=== PATIENT | male | born 1970 | race Caucasian/White ===

== ENCOUNTER 2018-04-21 23:42 | Emergency (ER) | payer BC, MEDICAID ==
[2018-04-21] MEDS ORDERED: traMADol 50 MG Tab PO ONE (23:43)
[2018-04-22] MEDS ORDERED: Amoxicillin/Clavulanate K 875-125 MG Tab PO STA (00:08)
--- NOTE | 2018-04-22 00:13 | EDM.PDOC ---
ED HPI GENERAL MEDICAL PROBLEM - General Chief Complaint: General Stated Complaint: SWOLLEN TOOTH Time Seen by Provider: 04/21/18 23:50 Source of Information: Reports: Patient History Limitations: Reports: No Limitations - History of Present Illness INITIAL COMMENTS - FREE TEXT/NARRATIVE: 47 y.o.male with a h/o Asthma came with his to the ed due to left facial swelling and toothache. Pt took motrin for pain. No N/V/D or any other acute medical issues. 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: NSAIDS L upper jaw Pain Score (Numeric/FACES): 5 - Related Data Allergies Allergy/AdvReac Type Severity Reaction Status Date / Time No Known Allergies Allergy Verified 04/21/18 23:50 Home Meds: Home Meds Albuterol Sulfate [Proair Hfa] 2 puff IH ASDIRECTED 06/25/15 [History] Fluticasone/Salmeterol [Fluticasone-Salmeterol 113-14 MCG Powder Inh] 1 puff BID 04/21/18 [History] Amoxicillin/Potassium Clav [Augmentin 875-125 Tablet] 1 each PO BID #20 tablet 04/22/18 [Rx] Past Medical History - Past Health History Medical/Surgical History: Denies Medical/Surgical History Cardiovascular History: Reports: Hypertension Respiratory History: Reports: Asthma Genitourinary History: Reports: None Endocrine/Metabolic History: Reports: Obesity/BMI 30+ Dermatologic History: Reports: Cellulitis - Infectious Disease History Infectious Disease History: Reports: Chicken Pox - Past Surgical History GI Surgical History: Reports: Hernia, Abdominal Social & Family History - Tobacco Use Smoking Status *Q: Never Smoker - Caffeine Use Caffeine Use: Reports: Soda, Tea - Recreational Drug Use Recreational Drug Use: No ED ROS GENERAL - Review of Systems Review Of Systems: See Below Constitutional: Reports: No Symptoms HEENT: Reports: Dental Pain Respiratory: Reports: No Symptoms Cardiovascular: Reports: No Symptoms Endocrine: Reports: No Symptoms GI/Abdominal: Reports: No Symptoms : Reports: No Symptoms Musculoskeletal: Reports: No Symptoms Skin: Reports: No Symptoms Neurological: Reports: No Symptoms Psychiatric: Reports: No Symptoms Hematologic/Lymphatic: Reports: No Symptoms Immunologic: Reports: No Symptoms ED EXAM, GENERAL - Physical Exam Exam: See Below Exam Limited By: No Limitations General Appearance: Alert, WD/WN, Mild Distress Eye Exam: Bilateral Eye: Normal Inspection Ears: Normal External Exam Ear Exam: Bilateral Ear: Auricle Normal Nose: Normal Inspection, Normal Mucosa, No Blood Throat/Mouth: Normal Lips, Normal Gums, Normal Voice, No Airway Compromise, Other (poor dentition, left face swollen) Head: Atraumatic, Normocephalic Neck: Normal Inspection, Supple, Non-Tender, Full Range of Motion Respiratory/Chest: No Respiratory Distress, Lungs Clear, Normal Breath Sounds, Chest Non-Tender Cardiovascular: Normal Peripheral Pulses, Regular Rate, Rhythm, No Edema, No Gallop, No Murmur Peripheral Pulses: 2+: Brachial (L) GI/Abdominal: Normal Bowel Sounds, Soft, Non-Tender, No Organomegaly, Pelvis Stable (Male) Exam: Deferred Rectal (Males) Exam: Deferred Back Exam: Normal Inspection, Full Range of Motion Extremities: Normal Inspection, Normal Range of Motion, Non-Tender, No Pedal Edema, Normal Capillary Refill Neurological: Alert, Oriented, CN II-XII Intact, Normal Cognition, Normal Gait Psychiatric: Normal Affect, Normal Mood Skin Exam: Warm, Dry, Intact, Normal Color, Rash (left face swollen, erythematous) Lymphatic: No Adenopathy Course - Vital Signs Text/Narrative:: 47 y.o.male with a h/o Asthma came with his to the ed due to left facial swelling and toothache. Pt took motrin for pain. No N/V/D or any other acute medical issues. BP 176/96 RR 18 Pulse ox 97% on RA Pulse 66 Temp 36.8 PE: WNWD W M with left face swelling, pain and redness Imaging: Refused facial CT to R/O abscess Impression: Tooth abscess #14 Tx: Ultram totake home. Augmentin Reexam: Improved Plan: D/C with instructions Last Recorded V/S: Last Vital Signs Temp 36.8 C 04/21/18 23:45 Pulse 71 04/22/18 00:16 Resp 20 04/22/18 00:16 BP 168/83 H 04/22/18 00:16 Pulse Ox 96 04/22/18 00:16 - Orders/Labs/Meds Meds: Medications Discontinued Medications Generic Name Dose Route Start Last Admin Trade Name Dustin PRN Reason Stop Dose Admin Amoxicillin/Clavulanate Potassium 1 tab 04/22/18 00:08 04/22/18 00:13 Augmentin 875 Mg/125 Mg PO 04/22/18 00:09 1 tab ONETIME STA Administration Departure - Departure Time of Disposition: 00:09 Disposition: Home, Self-Care 01 Condition: Good Clinical Impression: Tooth abscess - Discharge Information Prescriptions: Amoxicillin/Potassium Clav [Augmentin 875-125 Tablet] 1 each PO BID #20 tablet Instructions: Amoxicillin; Clavulanic Acid tablets, Dental Abscess, Easy-to- Read, Tramadol tablets Referrals: Radha Luis NP [Primary Care Provider] - Forms: ED Department Discharge Additional Instructions: Please take Augmentin as recommended, Ultram for severe pain. Please see a dentist a.s.a.p. Please come back if your symptoms get worse acutely
[2018-04-22 00:29] VITALS: BP 168/83
== END 2018-04-22 00:20 | disposition home or self-care (01) ==
LOC: FB.ED 23:42
DX: K04.7 Periapical abscess without sinus (principal); E66.9 Obesity, unspecified; I10 Essential (primary) hypertension; J45.909 Unspecified asthma, uncomplicated
CPT/HCPCS: 99282; A9270

== ENCOUNTER 2019-12-06 18:38 | Emergency (ER) | payer BC ==
[2019-12-06] MEDS ORDERED: Aspirin 81 MG Tab.Chew PO ONE (19:28)
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
[2019-12-06 20:01] VITALS: BP 171/77; PULSE 72
--- NOTE | 2019-12-07 09:50 | CR ---
INDICATION: Dyspnea, chest pain. CHEST ONE VIEW: An AP upright portable view of the chest was obtained 12/06/19 - no comparisons. The heart appears to be near the upper limits of normal in size, but is not grossly enlarged. A definite active infiltrate or effusion was not identified, although the pulmonary vasculature appears to be slightly congested. It is not well seen partly due to the portable technique and partly due to the patient's large size. When clinically possible, PA and lateral views of the chest may be helpful for further evaluation. A definite active infiltrate or effusion was not identified. Exogenous obesity is noted. IMPRESSION: No definite acute process, but difficult to exclude a mild degree of pulmonary vascular congestion. Full inspiration PA and lateral views of the chest may be helpful for further evaluation. MTDD
== END 2019-12-06 20:35 | disposition home or self-care (01) ==
LOC: FB.ED 18:38
DX: J45.909 Unspecified asthma, uncomplicated (principal); R07.89 Other chest pain; I10 Essential (primary) hypertension; E66.9 Obesity, unspecified; Z68.44 Body mass index [BMI] 60.0-69.9, adult; Z79.899 Other long term (current) drug therapy
CPT/HCPCS: 36415; 71045; 80053; 83880; 84484; 85025; 85379; 93005; 99285; A9270; 93010; 99284

== ENCOUNTER 2020-02-11 17:56 | Emergency (ER) | payer BC ==
--- NOTE | 2020-02-11 18:20 | EDM.PDOC ---
ED HPI GENERAL MEDICAL PROBLEM - General Chief Complaint: General Stated Complaint: SOB,DIZZINES,LIGHTHEADED Time Seen by Provider: 02/11/20 18:05 Source of Information: Reports: Patient History Limitations: Reports: No Limitations - History of Present Illness INITIAL COMMENTS - FREE TEXT/NARRATIVE: Patient presented to the ED because he want to be tested for Covid. He said he was exposed to 3 people who tested positive for covid at work. He c/o coughing,but no fever,sorethroat, nausea,vomiting or diarrhea. - Related Data Allergies Allergy/AdvReac Type Severity Reaction Status Date / Time No Known Allergies Allergy Verified 12/06/19 19:12 Home Meds: Home Meds Albuterol [Ventolin HFA] 2 puff INH BID 12/06/19 [History] Budesonide/Formoterol Fumarate [Budesonide-Formoterol 160-4.5] 1 puff INH BEDTIME 02/11/20 [History] Past Medical History - Past Health History Medical/Surgical History: Denies Medical/Surgical History HEENT History: Reports: Impaired Vision Cardiovascular History: Reports: Hypertension Respiratory History: Reports: Asthma Genitourinary History: Reports: None Endocrine/Metabolic History: Reports: Obesity/BMI 30+ Dermatologic History: Reports: Cellulitis - Infectious Disease History Infectious Disease History: Reports: Chicken Pox - Past Surgical History GI Surgical History: Reports: Hernia, Abdominal Social & Family History - Family History Family Medical History: Noncontributory - Caffeine Use Caffeine Use: Reports: Soda, Tea ED ROS GENERAL - Review of Systems Review Of Systems: See Below Constitutional: Reports: No Symptoms HEENT: Reports: No Symptoms Respiratory: Reports: Shortness of Breath, Cough Cardiovascular: Reports: No Symptoms Endocrine: Reports: No Symptoms GI/Abdominal: Reports: No Symptoms : Reports: No Symptoms Musculoskeletal: Reports: No Symptoms Skin: Reports: No Symptoms Neurological: Reports: No Symptoms Psychiatric: Reports: No Symptoms ED EXAM, GENERAL - Physical Exam Exam: See Below Exam Limited By: No Limitations General Appearance: Alert, No Apparent Distress Eye Exam: Bilateral Eye: PERRL Ears: Normal External Exam, Normal Canal Nose: Normal Inspection, Normal Mucosa Throat/Mouth: Normal Inspection, Normal Lips Head: Atraumatic, Normocephalic Neck: Normal Inspection, Supple, Non-Tender, Full Range of Motion Respiratory/Chest: No Respiratory Distress, Lungs Clear, Normal Breath Sounds Cardiovascular: Normal Peripheral Pulses, Regular Rate, Rhythm, No Edema GI/Abdominal: Normal Bowel Sounds, Soft, Non-Tender Back Exam: Normal Inspection, Full Range of Motion Extremities: Normal Inspection, Normal Range of Motion Neurological: Alert, Oriented, CN II-XII Intact Course - Vital Signs Text/Narrative:: [id number] - Orders/Labs/Meds Orders: Active Orders 24 hr Category Date Time Status CORONAVIRUS COVID-19, LIVE Routine Lab 02/11/20 18:18 Ordered Departure - Departure Time of Disposition: 18:20 Disposition: Home, Self-Care 01 Condition: Good Clinical Impression: Exposure to COVID-19 virus - Discharge Information Instructions: COVID-19 Frequently Asked Questions Referrals: Radha Luis NP [Primary Care Provider] - Forms: ED Department Discharge Additional Instructions: Isolate yourself until you get your covid result - My Orders Last 24 Hours: My Active Orders 02/11/20 18:18 CORONAVIRUS COVID-19, LIVE Routine - Assessment/Plan Last 24 Hours: My Active Orders 02/11/20 18:18 CORONAVIRUS COVID-19, LIVE Routine
[2020-02-11 20:12] VITALS: BP 181/84; PULSE 60
[2020-02-13 19:07] LABS: CORNONAVIRUS (COVID19) CSH-NRL Negative (Negative)
== END 2020-02-11 18:30 | disposition home or self-care (01) ==
LOC: FB.ED 17:56
DX: R05 Cough (principal); I10 Essential (primary) hypertension; J45.909 Unspecified asthma, uncomplicated; E66.9 Obesity, unspecified; Z20.828 Contact with and (suspected) exposure to other viral communicable diseases; Z79.899 Other long term (current) drug therapy
CPT/HCPCS: 99284; U0003

== ENCOUNTER 2020-06-29 16:47 | Observation (INO) | payer BC ==
[2020-06-29] MEDS ORDERED: Sodium Chloride 0.9% 10 ML Syringe FLUSH PRN (16:52)
[2020-06-29] MEDS ORDERED: Aspirin 81 MG Tab.Chew PO STA (16:53)
[2020-06-29] MEDS ORDERED: Nitroglycerin 0.4 MG Tab.SL SL PRN (16:53)
[2020-06-29] MEDS ORDERED: Diltiazem 25 MG/5 ML SDV IVPUSH ONE (17:01)
[2020-06-29] MEDS ORDERED: Diltiazem 25 MG/5 ML SDV IVPUSH STA (17:08)
[2020-06-29] MEDS ORDERED: Enoxaparin 40 MG/0.4 ML Syringe SUBCUT SCH (18:00)
[2020-06-29] MEDS ORDERED: Metoprolol Succinate 50 MG Tab.ER PO STA (18:15)
--- NOTE | 2020-06-29 18:22 | EDM.PDOC ---
ED HPI GENERAL MEDICAL PROBLEM - General Chief Complaint: Cardiovascular Problem Stated Complaint: SOB Time Seen by Provider: 06/29/20 16:50 Source of Information: Reports: Patient History Limitations: Reports: No Limitations - History of Present Illness INITIAL COMMENTS - FREE TEXT/NARRATIVE: Patient is a 50 YO M who presented to the ED because of chest pain and dyspnea which started 3 days ago and got worse today. He described it as heaviness over the sternal area. There is no nausea,vomiting, fever, chills, cough or cold symptoms. THere is no known exposure to Covid but have not been vaccinated yet. Midsternal chest Pain Score (Numeric/FACES): 7 - Related Data Allergies Allergy/AdvReac Type Severity Reaction Status Date / Time No Known Allergies Allergy Verified 06/29/20 17:16 Home Meds: Home Meds Albuterol [Ventolin HFA] 2 puff INH BID 12/06/19 [History] Budesonide/Formoterol Fumarate [Budesonide-Formoterol 160-4.5] 1 puff INH BID 02/11/20 [History] Montelukast [Singulair] 10 mg PO BEDTIME 06/29/20 [History] predniSONE [Prednisone] 40 mg ASDIRECTED 06/29/20 [History] Past Medical History - Past Health History Medical/Surgical History: Denies Medical/Surgical History HEENT History: Reports: Impaired Vision Cardiovascular History: Reports: Hypertension Respiratory History: Reports: Asthma Genitourinary History: Reports: None Endocrine/Metabolic History: Reports: Obesity/BMI 30+ Dermatologic History: Reports: Cellulitis - Infectious Disease History Infectious Disease History: Reports: Chicken Pox - Past Surgical History HEENT Surgical History: Reports: None GI Surgical History: Reports: Hernia, Abdominal Social & Family History - Family History Family Medical History: No Pertinent Family History - Tobacco Use Tobacco Use Status *Q: Never Tobacco User - Caffeine Use Caffeine Use: Reports: Soda - Recreational Drug Use Recreational Drug Use: No ED ROS GENERAL - Review of Systems Review Of Systems: See Below Constitutional: Reports: No Symptoms HEENT: Reports: No Symptoms Respiratory: Reports: Shortness of Breath Cardiovascular: Reports: Chest Pain, Palpitations Endocrine: Reports: No Symptoms GI/Abdominal: Reports: No Symptoms : Reports: No Symptoms Musculoskeletal: Reports: No Symptoms Skin: Reports: No Symptoms Neurological: Reports: No Symptoms Psychiatric: Reports: No Symptoms Hematologic/Lymphatic: Reports: No Symptoms ED EXAM, GENERAL - Physical Exam Exam: See Below Exam Limited By: No Limitations General Appearance: Alert, No Apparent Distress Eye Exam: Bilateral Eye: PERRL Ears: Normal External Exam, Normal Canal Nose: Normal Inspection, Normal Mucosa, No Blood Throat/Mouth: Normal Inspection, Normal Lips, Normal Teeth, Normal Gums Head: Atraumatic, Normocephalic Neck: Normal Inspection, Supple, Non-Tender, Full Range of Motion Respiratory/Chest: No Respiratory Distress, Lungs Clear, Normal Breath Sounds, No Accessory Muscle Use, Chest Non-Tender Cardiovascular: Normal Peripheral Pulses, Regular Rate, Rhythm, No Edema, No Gallop, Tachycardia, Irregularly Irregular GI/Abdominal: Normal Bowel Sounds, Soft, Non-Tender, No Organomegaly Back Exam: Normal Inspection, Full Range of Motion Extremities: Normal Inspection, Normal Range of Motion, Non-Tender Neurological: Alert, Oriented, CN II-XII Intact, Normal Cognition, Normal Gait Psychiatric: Normal Affect, Normal Mood Skin Exam: Warm, Dry, Normal Color Course - Vital Signs Text/Narrative:: Labs/EKG/CXR result was reviewed and discussed with patient Cardizem 25 mg IV x1 Metoprolol Succinate 50 mg po x1 Last Recorded V/S: Last Vital Signs Temp 36.3 C 06/30/20 07:25 Pulse 93 06/30/20 07:25 Resp 18 06/30/20 07:25 BP 151/92 H 06/30/20 07:25 Pulse Ox 98 06/30/20 07:25 - Orders/Labs/Meds Orders: Active Orders 24 hr Category Date Time Status Patient Status [ADT] Routine ADT 06/29/20 18:27 Active Cardiac Monitoring [RC] CONTINUOUS Care 06/29/20 18:30 Active EKG Documentation Completion [RC] ASDIRECTED Care 06/29/20 16:52 Active Intake and Output [RC] QSHIFT Care 06/29/20 18:29 Active Oxygen Therapy [RC] PRN Care 06/29/20 18:27 Active Pulse Oximetry [RC] PRN Care 06/29/20 18:29 Active Up With Assistance [RC] ASDIRECTED Care 06/29/20 18:27 Active VTE/DVT Education [RC] Per Unit Routine Care 06/29/20 18:27 Active Vital Signs [RC] Q4H Care 06/29/20 18:27 Active Heart Healthy Diet [DIET] Diet 06/29/20 Dinner Ordered Chest 1V Frontal [CR] Stat Exams 06/29/20 16:51 Taken TROPONIN I [CHEM] AM Lab 07/01/20 05:11 Ordered Docusate Sodium/Sennosides [Senna Plus] Med 06/29/20 18:27 Active 1 tab PO BID PRN Enoxaparin [Lovenox] Med 06/29/20 18:00 Active 40 mg SUBCUT Q24H Nitroglycerin [Nitrostat] Med 06/29/20 16:53 Active 0.4 mg SL Q5M PRN Ondansetron [Zofran] Med 06/29/20 18:27 Active 4 mg IV Q4H PRN Sodium Chloride 0.9% [Saline Flush] Med 06/29/20 16:52 Active 10 ml FLUSH ASDIRECTED PRN Saline Lock Insert [OM.PC] Routine Oth 06/29/20 16:52 Ordered Sequential Compression Device [OM.PC] Per Unit Routine Oth 06/29/20 18:30 Ordered Resuscitation Status Routine Resus Stat 06/29/20 18:27 Ordered EKG 12 Lead [EK] Routine Ther 06/29/20 16:51 Ordered Medication Orders Enoxaparin Sodium (Enoxaparin 40 Mg/0.4 Ml Syringe) 40 mg SUBCUT Q24H HERNAN Last Admin: 06/29/20 20:10 Dose: 40 mg Documented by: CÉSAR Nitroglycerin (Nitroglycerin 0.4 Mg Tab.Sl) 0.4 mg SL Q5M PRN PRN Reason: Chest Pain Ondansetron HCl (Ondansetron 4 Mg/2 Ml Sdv) 4 mg IV Q4H PRN PRN Reason: Nausea/Vomiting Senna/Docusate Sodium (Docusate Sodium/Sennosides 50-8.6 Mg Tab) 1 tab PO BID PRN PRN Reason: Constipation Sodium Chloride (Sodium Chloride 0.9% 10 Ml Syringe) 10 ml FLUSH ASDIRECTED PRN PRN Reason: Keep Vein Open Last Admin: 06/29/20 17:15 Dose: 10 ml Documented by: CONNOR Labs: Laboratory Tests 06/29/20 06/29/20 06/29/20 Range/Units 17:05 17:05 17:05 WBC 9.0 (3.2-10.1) x10-3/uL RBC 5.11 (3.90-5.90) x10(6)uL Hgb 15.1 (12.9-17.7) g/dL Hct 46.0 (38.3-50.1) % MCV 89.9 (80.8-98.7) fL MCH 29.6 (27.0-33.3) pg MCHC 33.0 (28.7-35.3) g/dL RDW 14.6 (12.4-15.0) % Plt Count 187 (117-477) x10(3)uL MPV 9.3 (6.7-11.0) fL Neut % (Auto) 86.6 H (40.3-71.8) % Lymph % (Auto) 9.4 L (15.8-45.3) % Louisa % (Auto) 3.7 L (5.5-15.2) % Eos % (Auto) 0.1 (0.1-6.8) % Baso % (Auto) 0.2 L (0.3-3.8) % Neut # (Auto) 7.8 H (1.7-6.9) x10-3/uL Lymph # (Auto) 0.8 (0.5-4.5) x10-3/uL Louisa # (Auto) 0.3 (0.0-1.2) x10-3/uL Eos # (Auto) 0.0 (0.0-0.6) x10-3/uL Baso # (Auto) 0.0 (0.0-0.3) x10-3/uL PT (9.0-11.1) sec INR (1.00-1.24) APTT (24.4-33.2) SECONDS D-Dimer, Quantitative (0.0-0.59) mg/LFEU Sodium 143 (135-145) mmol/L Potassium 4.4 (3.5-5.3) mmol/L Chloride 103 (100-110) mmol/L Carbon Dioxide 32 (21-32) mmol/L BUN 22 H (7-18) mg/dL Creatinine 1.1 (0.70-1.30) mg/dL Est Cr Clr Drug Dosing 80.34 mL/min Estimated GFR (MDRD) > 60 (>60) BUN/Creatinine Ratio 20.0 (9-20) Glucose 152 H (80-116) mg/dL Calcium 8.7 (8.6-10.2) mg/dL Magnesium (1.8-2.5) mg/dL Total Bilirubin 0.3 (0.1-1.3) mg/dL AST 29 H (5-25) IU/L ALT 48 H D (12-36) U/L Alkaline Phosphatase 94 (56-112) IU/L Troponin I 9.0 (4.0-60.3) pg/mL NT-Pro-B Natriuret Pep (<=125) pg/mL Total Protein 7.9 (6.0-8.0) g/dL Albumin 3.9 (3.5-5.2) g/dL Globulin 4.0 g/dL Albumin/Globulin Ratio 1.0 SARS-CoV-2 RNA (LIVE) (NEGATIVE) 06/29/20 06/29/20 06/29/20 Range/Units 17:05 17:05 17:05 WBC (3.2-10.1) x10-3/uL RBC (3.90-5.90) x10(6)uL Hgb (12.9-17.7) g/dL Hct (38.3-50.1) % MCV (80.8-98.7) fL MCH (27.0-33.3) pg MCHC (28.7-35.3) g/dL RDW (12.4-15.0) % Plt Count (117-477) x10(3)uL MPV (6.7-11.0) fL Neut % (Auto) (40.3-71.8) % Lymph % (Auto) (15.8-45.3) % Louisa % (Auto) (5.5-15.2) % Eos % (Auto) (0.1-6.8) % Baso % (Auto) (0.3-3.8) % Neut # (Auto) (1.7-6.9) x10-3/uL Lymph # (Auto) (0.5-4.5) x10-3/uL Louisa # (Auto) (0.0-1.2) x10-3/uL Eos # (Auto) (0.0-0.6) x10-3/uL Baso # (Auto) (0.0-0.3) x10-3/uL PT 10.1 (9.0-11.1) sec INR 0.94 L (1.00-1.24) APTT 24.6 (24.4-33.2) SECONDS D-Dimer, Quantitative 0.38 (0.0-0.59) mg/LFEU Sodium (135-145) mmol/L Potassium (3.5-5.3) mmol/L Chloride (100-110) mmol/L Carbon Dioxide (21-32) mmol/L BUN (7-18) mg/dL Creatinine (0.70-1.30) mg/dL Est Cr Clr Drug Dosing mL/min Estimated GFR (MDRD) (>60) BUN/Creatinine Ratio (9-20) Glucose (80-116) mg/dL Calcium (8.6-10.2) mg/dL Magnesium (1.8-2.5) mg/dL Total Bilirubin (0.1-1.3) mg/dL AST (5-25) IU/L ALT (12-36) U/L Alkaline Phosphatase (56-112) IU/L Troponin I (4.0-60.3) pg/mL NT-Pro-B Natriuret Pep 971 H (<=125) pg/mL Total Protein (6.0-8.0) g/dL Albumin (3.5-5.2) g/dL Globulin g/dL Albumin/Globulin Ratio SARS-CoV-2 RNA (LIVE) (NEGATIVE) 06/29/20 06/29/20 Range/Units 17:05 18:23 WBC (3.2-10.1) x10-3/uL RBC (3.90-5.90) x10(6)uL Hgb (12.9-17.7) g/dL Hct (38.3-50.1) % MCV (80.8-98.7) fL MCH (27.0-33.3) pg MCHC (28.7-35.3) g/dL RDW (12.4-15.0) % Plt Count (117-477) x10(3)uL MPV (6.7-11.0) fL Neut % (Auto) (40.3-71.8) % Lymph % (Auto) (15.8-45.3) % Louisa % (Auto) (5.5-15.2) % Eos % (Auto) (0.1-6.8) % Baso % (Auto) (0.3-3.8) % Neut # (Auto) (1.7-6.9) x10-3/uL Lymph # (Auto) (0.5-4.5) x10-3/uL Louisa # (Auto) (0.0-1.2) x10-3/uL Eos # (Auto) (0.0-0.6) x10-3/uL Baso # (Auto) (0.0-0.3) x10-3/uL PT (9.0-11.1) sec INR (1.00-1.24) APTT (24.4-33.2) SECONDS D-Dimer, Quantitative (0.0-0.59) mg/LFEU Sodium (135-145) mmol/L Potassium (3.5-5.3) mmol/L Chloride (100-110) mmol/L Carbon Dioxide (21-32) mmol/L BUN (7-18) mg/dL Creatinine (0.70-1.30) mg/dL Est Cr Clr Drug Dosing mL/min Estimated GFR (MDRD) (>60) BUN/Creatinine Ratio (9-20) Glucose (80-116) mg/dL Calcium (8.6-10.2) mg/dL Magnesium 2.0 (1.8-2.5) mg/dL Total Bilirubin (0.1-1.3) mg/dL AST (5-25) IU/L ALT (12-36) U/L Alkaline Phosphatase (56-112) IU/L Troponin I (4.0-60.3) pg/mL NT-Pro-B Natriuret Pep (<=125) pg/mL Total Protein (6.0-8.0) g/dL Albumin (3.5-5.2) g/dL Globulin g/dL Albumin/Globulin Ratio SARS-CoV-2 RNA (LIVE) Negative (NEGATIVE) Meds: Medications Generic Name Dose Route Start Last Admin Trade Name Raymondq PRN Reason Stop Dose Admin Enoxaparin Sodium 40 mg 06/29/20 18:00 06/29/20 20:10 Enoxaparin 40 Mg/0.4 Ml Syringe SUBCUT 40 mg Q24H HERNAN Administration Nitroglycerin 0.4 mg 06/29/20 16:53 Nitroglycerin 0.4 Mg Tab.Sl SL Q5M PRN Chest Pain Ondansetron HCl 4 mg 06/29/20 18:27 Ondansetron 4 Mg/2 Ml Sdv IV Q4H PRN Nausea/Vomiting Senna/Docusate Sodium 1 tab 06/29/20 18:27 Docusate Sodium/Sennosides 50-8.6 Mg Tab PO BID PRN Constipation Sodium Chloride 10 ml 06/29/20 16:52 06/29/20 17:15 Sodium Chloride 0.9% 10 Ml Syringe FLUSH 10 ml ASDIRECTED PRN Administration Keep Vein Open Discontinued Medications Generic Name Dose Route Start Last Admin Trade Name Dustin PRN Reason Stop Dose Admin Aspirin 324 mg 06/29/20 16:53 06/29/20 17:17 Aspirin 81 Mg Tab.Chew PO 06/29/20 16:54 324 mg NOW STA Administration Diltiazem HCl 15 mg 06/29/20 17:01 06/29/20 17:17 Diltiazem 25 Mg/5 Ml Sdv IVPUSH 06/29/20 17:02 Not Given ONETIME ONE Diltiazem HCl 25 mg 06/29/20 17:08 06/29/20 17:15 Diltiazem 25 Mg/5 Ml Sdv IVPUSH 06/29/20 17:09 25 mg NOW STA Administration Diltiazem HCl 120 mg 06/29/20 23:03 06/29/20 23:13 Diltiazem 120 Mg Cap.Cd PO 06/29/20 23:04 120 mg ONETIME ONE Administration Metoprolol Succinate 50 mg 06/29/20 18:15 06/29/20 18:38 Metoprolol Succinate 50 Mg Tab.Er PO 06/29/20 18:16 50 mg NOW STA Administration Departure - Departure Time of Disposition: 18:00 Disposition: Refer to Observation Condition: Good Clinical Impression: New onset a-fib, Chest pain, Palpitations Sepsis Event Note (ED) - Evaluation Sepsis Screening Result: No Definite Risk - My Orders Last 24 Hours: My Active Orders 06/29/20 Dinner Heart Healthy Diet [DIET] 06/29/20 16:51 Chest 1V Frontal [CR] Stat EKG 12 Lead [EK] Routine 06/29/20 16:52 EKG Documentation Completion [RC] ASDIRECTED Sodium Chloride 0.9% [Saline Flush] 10 ml FLUSH ASDIRECTED PRN Saline Lock Insert [OM.PC] Routine 06/29/20 16:53 Nitroglycerin [Nitrostat] 0.4 mg SL Q5M PRN 06/29/20 18:00 Enoxaparin [Lovenox] 40 mg SUBCUT Q24H 06/29/20 18:27 Patient Status [ADT] Routine Oxygen Therapy [RC] PRN Up With Assistance [RC] ASDIRECTED VTE/DVT Education [RC] Per Unit Routine Vital Signs [RC] Q4H Docusate Sodium/Sennosides [Senna Plus] 1 tab PO BID PRN Ondansetron [Zofran] 4 mg IV Q4H PRN Resuscitation Status Routine 06/29/20 18:29 Intake and Output [RC] QSHIFT Pulse Oximetry [RC] PRN 06/29/20 18:30 Cardiac Monitoring [RC] CONTINUOUS Sequential Compression Device [OM.PC] Per Unit Routine 07/01/20 05:11 TROPONIN I [CHEM] AM - Assessment/Plan Last 24 Hours: My Active Orders 06/29/20 Dinner Heart Healthy Diet [DIET] 06/29/20 16:51 Chest 1V Frontal [CR] Stat EKG 12 Lead [EK] Routine 06/29/20 16:52 EKG Documentation Completion [RC] ASDIRECTED Sodium Chloride 0.9% [Saline Flush] 10 ml FLUSH ASDIRECTED PRN Saline Lock Insert [OM.PC] Routine 06/29/20 16:53 Nitroglycerin [Nitrostat] 0.4 mg SL Q5M PRN 06/29/20 18:00 Enoxaparin [Lovenox] 40 mg SUBCUT Q24H 06/29/20 18:27 Patient Status [ADT] Routine Oxygen Therapy [RC] PRN Up With Assistance [RC] ASDIRECTED VTE/DVT Education [RC] Per Unit Routine Vital Signs [RC] Q4H Docusate Sodium/Sennosides [Senna Plus] 1 tab PO BID PRN Ondansetron [Zofran] 4 mg IV Q4H PRN Resuscitation Status Routine 06/29/20 18:29 Intake and Output [RC] QSHIFT Pulse Oximetry [RC] PRN 06/29/20 18:30 Cardiac Monitoring [RC] CONTINUOUS Sequential Compression Device [OM.PC] Per Unit Routine 07/01/20 05:11 TROPONIN I [CHEM] AM
[2020-06-29] MEDS ORDERED: Ondansetron 4 MG/2 ML SDV IV PRN (18:27)
[2020-06-29] MEDS ORDERED: Diltiazem 120 MG Cap.CD PO ONE (23:03)
[2020-06-30] MEDS ORDERED: Metoprolol Succinate 50 MG Tab.ER PO SCH (09:00)
--- NOTE | 2020-06-30 10:28 | CR ---
INDICATION: Chest pain. CHEST ONE VIEW: An AP portable upright view of the was obtained 06/29/20 and compared with 12/06/19. Evidence of exogenous obesity is again noted. The heart appears enlarged. The aorta is somewhat tortuous. Somewhat heavy markings are noted which may be on the basis of fibrosis. The possibility of patchy bronchopneumonia in the mid to lower lung field on the right and left lung base is difficult to exclude with heavy markings present. However, no gross consolidating pneumonia, or definite effusion was seen. Overlying EKG leads are noted. IMPRESSION: 1. No definite acute process but difficult to exclude areas of patchy bronchopneumonia, especially at the lung bases. 2. ASHD with mild cardiomegaly suggested. 3. Probable pulmonary fibrosis. 4. Exogenous obesity. Full inspiration PA and lateral views of the chest may be helpful for further evaluation when clinically possible. MTDD
[2020-06-30] MEDS ORDERED: Hydrochlorothiazide 12.5 MG Cap PO SCH (10:45)
--- NOTE | 2020-06-30 11:22 | PCM.HP.2 ---
H&P History of Present Illness - General Date of Service: 06/30/20 Admit Problem/Dx: Admission Diagnosis/Problem Admission Diagnosis/Problem Afib, Atrial fibrillation Source of Information: Patient, EMS Notes Reviewed - History of Present Illness Initial Comments - Free Text/Narative: Dewey presented to ER last night with 3 day history of chest pain and shortness of breath. Had been seen in the clinic, treated for asthma exacerbation with prednisone. Located chest pain substernal but denies any chest pain or shortness of breath this morning. No fevers, chills, sore throat, cough, nausea, vomiting, diarrhea, dysuria, frequency. Has chronic stasis dermatitis from venous insufficiency/peripheral edema. He takes Lasix 40 mg daily as needed for edema, last took May 01. He states he was on a blood pressure medication but didn't have any further refills and had not seen provider. No pharmacy claim history for any blood pressure medications for the past year. No previous EKG in our system. States he does snore at night, and that he was to be set up for sleep study but was not done yet. In ER: EKG showed atrial fibrillation/atrial flutter which is new, rate in 140s. Portable chest x-ray, no acute pneumonia. Troponin 2 sets negative. D Dimer was negative at 0.38. Received 2 doses of Cardizem IV in ER and last night, Metoprolol 50 mg x 1 last night and again this morning. Lovenox 40 mg x 1 given last night. No documentation of cardiology consult on ER note. Midsternal chest Pain Score (Numeric/FACES): 0 - Related Data Allergies/Adverse Reactions: Allergies Allergy/AdvReac Type Severity Reaction Status Date / Time No Known Allergies Allergy Verified 06/29/20 17:16 Home Medications: Home Meds Albuterol [Ventolin HFA] 2 puff INH BID 12/06/19 [History] Budesonide/Formoterol Fumarate [Budesonide-Formoterol 160-4.5] 1 puff INH BID 02/11/20 [History] Montelukast [Singulair] 10 mg PO BEDTIME 06/29/20 [History] predniSONE [Prednisone] 40 mg ASDIRECTED 06/29/20 [History] Furosemide [Lasix] 40 mg PO DAILY PRN 03/18/21 [History] Past Medical History - Past Health History Medical/Surgical History: Denies Medical/Surgical History HEENT History: Reports: Impaired Vision Cardiovascular History: Reports: Hypertension Respiratory History: Reports: Asthma Genitourinary History: Reports: None Endocrine/Metabolic History: Reports: Obesity/BMI 30+ Dermatologic History: Reports: Cellulitis - Infectious Disease History Infectious Disease History: Reports: Chicken Pox - Past Surgical History HEENT Surgical History: Reports: None GI Surgical History: Reports: Hernia, Abdominal Social & Family History - Family History Family Medical History: No Pertinent Family History - Tobacco Use Tobacco Use Status *Q: Never Tobacco User Second Hand Smoke Exposure: Yes - Caffeine Use Caffeine Use: Reports: Soda Other Caffeine Use: several/daily - Alcohol Use Days Per Week of Alcohol Use: 0 - Recreational Drug Use Recreational Drug Use: No H&P Review of Systems - Review of Systems: Review Of Systems: See Below General: Reports: No Symptoms HEENT: Reports: No Symptoms Pulmonary: Reports: No Symptoms Cardiovascular: Reports: Edema, Blood Pressure Problem. Denies: Chest Pain Gastrointestinal: Reports: No Symptoms Genitourinary: Reports: No Symptoms Musculoskeletal: Reports: No Symptoms Skin: Reports: Dryness, Change in Color Psychiatric: Reports: No Symptoms Neurological: Reports: No Symptoms Hematologic/Lymphatic: Reports: No Symptoms Exam - Exam Exam: See Below - Vital Signs Vital Signs: Last Vital Signs Temp 97.3 F 06/30/20 07:25 Pulse 89 06/30/20 09:40 Resp 18 06/30/20 07:25 BP 154/106 H 06/30/20 09:40 Pulse Ox 98 06/30/20 07:25 Weight: 433 lb 6 oz - Exam General: Alert, Oriented, Cooperative HEENT: PERRLA, Conjunctiva Clear, EOMI, Hearing Intact, Mucosa Moist & [place], Nares Patent, Posterior Pharynx Clear Neck: Supple, Trachea Midline. No: Lymphadenopathy Lungs: Clear to Auscultation, Normal Respiratory Effort Cardiovascular: Regular Rate, Irregular Rhythm. No: Systolic Murmur, Diastolic Murmur GI/Abdominal Exam: Normal Bowel Sounds, Soft, Non-Tender, No Distention, Other (morbid obese) (Male) Exam: Deferred Rectal (Males) Exam: Deferred Extremities: Pedal Edema (1+ BLE), Other (Stasis dermatitis BLE) Peripheral Pulses: 2+: Radial (L), Radial (R) Skin: Warm, Dry, Intact Neurological: Cranial Nerves Intact Neuro Extensive - Mental Status: Normal Mood/Affect, Normal Cognition, Memory Intact - Patient Data Lab Results Last 24 hrs: Laboratory Results - last 24 hr 06/29/20 06/29/20 06/29/20 Range/Units 17:05 17:05 17:05 WBC 9.0 (3.2-10.1) x10-3/uL RBC 5.11 (3.90-5.90) x10(6)uL Hgb 15.1 (12.9-17.7) g/dL Hct 46.0 (38.3-50.1) % MCV 89.9 (80.8-98.7) fL MCH 29.6 (27.0-33.3) pg MCHC 33.0 (28.7-35.3) g/dL RDW 14.6 (12.4-15.0) % Plt Count 187 (117-477) x10(3)uL MPV 9.3 (6.7-11.0) fL Neut % (Auto) 86.6 H (40.3-71.8) % Lymph % (Auto) 9.4 L (15.8-45.3) % [place] % (Auto) 3.7 L (5.5-15.2) % Eos % (Auto) 0.1 (0.1-6.8) % Baso % (Auto) 0.2 L (0.3-3.8) % Neut # (Auto) 7.8 H (1.7-6.9) x10-3/uL Lymph # (Auto) 0.8 (0.5-4.5) x10-3/uL [place] # (Auto) 0.3 (0.0-1.2) x10-3/uL Eos # (Auto) 0.0 (0.0-0.6) x10-3/uL Baso # (Auto) 0.0 (0.0-0.3) x10-3/uL PT (9.0-11.1) sec INR (1.00-1.24) APTT (24.4-33.2) SECONDS D-Dimer, Quantitative (0.0-0.59) mg/LFEU Sodium 143 (135-145) mmol/L Potassium 4.4 (3.5-5.3) mmol/L Chloride 103 (100-110) mmol/L Carbon Dioxide 32 (21-32) mmol/L BUN 22 H (7-18) mg/dL Creatinine 1.1 (0.70-1.30) mg/dL Est Cr Clr Drug Dosing 80.34 mL/min Estimated GFR (MDRD) > 60 (>60) BUN/Creatinine Ratio 20.0 (9-20) Glucose 152 H (80-116) mg/dL Calcium 8.7 (8.6-10.2) mg/dL Magnesium (1.8-2.5) mg/dL Total Bilirubin 0.3 (0.1-1.3) mg/dL AST 29 H (5-25) IU/L ALT 48 H D (12-36) U/L Alkaline Phosphatase 94 (56-112) IU/L Troponin I 9.0 (4.0-60.3) pg/mL NT-Pro-B Natriuret Pep (<=125) pg/mL Total Protein 7.9 (6.0-8.0) g/dL Albumin 3.9 (3.5-5.2) g/dL Globulin 4.0 g/dL Albumin/Globulin Ratio 1.0 Triglycerides (15-150) mg/dL Cholesterol (50-200) mg/dL LDL Cholesterol Direct (60-130) mg/dL HDL Cholesterol (40-75) mg/dL Cholesterol/HDL Ratio (0-5) SARS-CoV-2 RNA (LIVE) (NEGATIVE) 06/29/20 06/29/20 06/29/20 Range/Units 17:05 17:05 17:05 WBC (3.2-10.1) x10-3/uL RBC (3.90-5.90) x10(6)uL Hgb (12.9-17.7) g/dL Hct (38.3-50.1) % MCV (80.8-98.7) fL MCH (27.0-33.3) pg MCHC (28.7-35.3) g/dL RDW (12.4-15.0) % Plt Count (117-477) x10(3)uL MPV (6.7-11.0) fL Neut % (Auto) (40.3-71.8) % Lymph % (Auto) (15.8-45.3) % [place] % (Auto) (5.5-15.2) % Eos % (Auto) (0.1-6.8) % Baso % (Auto) (0.3-3.8) % Neut # (Auto) (1.7-6.9) x10-3/uL Lymph # (Auto) (0.5-4.5) x10-3/uL [place] # (Auto) (0.0-1.2) x10-3/uL Eos # (Auto) (0.0-0.6) x10-3/uL Baso # (Auto) (0.0-0.3) x10-3/uL PT 10.1 (9.0-11.1) sec INR 0.94 L (1.00-1.24) APTT 24.6 (24.4-33.2) SECONDS D-Dimer, Quantitative 0.38 (0.0-0.59) mg/LFEU Sodium (135-145) mmol/L Potassium (3.5-5.3) mmol/L Chloride (100-110) mmol/L Carbon Dioxide (21-32) mmol/L BUN (7-18) mg/dL Creatinine (0.70-1.30) mg/dL Est Cr Clr Drug Dosing mL/min Estimated GFR (MDRD) (>60) BUN/Creatinine Ratio (9-20) Glucose (80-116) mg/dL Calcium (8.6-10.2) mg/dL Magnesium (1.8-2.5) mg/dL Total Bilirubin (0.1-1.3) mg/dL AST (5-25) IU/L ALT (12-36) U/L Alkaline Phosphatase (56-112) IU/L Troponin I (4.0-60.3) pg/mL NT-Pro-B Natriuret Pep 971 H (<=125) pg/mL Total Protein (6.0-8.0) g/dL Albumin (3.5-5.2) g/dL Globulin g/dL Albumin/Globulin Ratio Triglycerides (15-150) mg/dL Cholesterol (50-200) mg/dL LDL Cholesterol Direct (60-130) mg/dL HDL Cholesterol (40-75) mg/dL Cholesterol/HDL Ratio (0-5) SARS-CoV-2 RNA (LIVE) (NEGATIVE) 06/29/20 06/29/20 06/29/20 Range/Units 17:05 18:23 23:00 WBC (3.2-10.1) x10-3/uL RBC (3.90-5.90) x10(6)uL Hgb (12.9-17.7) g/dL Hct (38.3-50.1) % MCV (80.8-98.7) fL MCH (27.0-33.3) pg MCHC (28.7-35.3) g/dL RDW (12.4-15.0) % Plt Count (117-477) x10(3)uL MPV (6.7-11.0) fL Neut % (Auto) (40.3-71.8) % Lymph % (Auto) (15.8-45.3) % [place] % (Auto) (5.5-15.2) % Eos % (Auto) (0.1-6.8) % Baso % (Auto) (0.3-3.8) % Neut # (Auto) (1.7-6.9) x10-3/uL Lymph # (Auto) (0.5-4.5) x10-3/uL [place] # (Auto) (0.0-1.2) x10-3/uL Eos # (Auto) (0.0-0.6) x10-3/uL Baso # (Auto) (0.0-0.3) x10-3/uL PT (9.0-11.1) sec INR (1.00-1.24) APTT (24.4-33.2) SECONDS D-Dimer, Quantitative (0.0-0.59) mg/LFEU Sodium (135-145) mmol/L Potassium (3.5-5.3) mmol/L Chloride (100-110) mmol/L Carbon Dioxide (21-32) mmol/L BUN (7-18) mg/dL Creatinine (0.70-1.30) mg/dL Est Cr Clr Drug Dosing mL/min Estimated GFR (MDRD) (>60) BUN/Creatinine Ratio (9-20) Glucose (80-116) mg/dL Calcium (8.6-10.2) mg/dL Magnesium 2.0 (1.8-2.5) mg/dL Total Bilirubin (0.1-1.3) mg/dL AST (5-25) IU/L ALT (12-36) U/L Alkaline Phosphatase (56-112) IU/L Troponin I 11.4 (4.0-60.3) pg/mL NT-Pro-B Natriuret Pep (<=125) pg/mL Total Protein (6.0-8.0) g/dL Albumin (3.5-5.2) g/dL Globulin g/dL Albumin/Globulin Ratio Triglycerides (15-150) mg/dL Cholesterol (50-200) mg/dL LDL Cholesterol Direct (60-130) mg/dL HDL Cholesterol (40-75) mg/dL Cholesterol/HDL Ratio (0-5) SARS-CoV-2 RNA (LIVE) Negative (NEGATIVE) 06/30/20 06/30/20 06/30/20 Range/Units 06:25 06:35 06:35 WBC (3.2-10.1) x10-3/uL RBC (3.90-5.90) x10(6)uL Hgb (12.9-17.7) g/dL Hct (38.3-50.1) % MCV (80.8-98.7) fL MCH (27.0-33.3) pg MCHC (28.7-35.3) g/dL RDW (12.4-15.0) % Plt Count (117-477) x10(3)uL MPV (6.7-11.0) fL Neut % (Auto) (40.3-71.8) % Lymph % (Auto) (15.8-45.3) % [place] % (Auto) (5.5-15.2) % Eos % (Auto) (0.1-6.8) % Baso % (Auto) (0.3-3.8) % Neut # (Auto) (1.7-6.9) x10-3/uL Lymph # (Auto) (0.5-4.5) x10-3/uL [place] # (Auto) (0.0-1.2) x10-3/uL Eos # (Auto) (0.0-0.6) x10-3/uL Baso # (Auto) (0.0-0.3) x10-3/uL PT (9.0-11.1) sec INR (1.00-1.24) APTT (24.4-33.2) SECONDS D-Dimer, Quantitative (0.0-0.59) mg/LFEU Sodium 144 (135-145) mmol/L Potassium 4.1 (3.5-5.3) mmol/L Chloride 103 (100-110) mmol/L Carbon Dioxide 33 H (21-32) mmol/L BUN 26 H (7-18) mg/dL Creatinine 1.0 (0.70-1.30) mg/dL Est Cr Clr Drug Dosing 88.38 mL/min Estimated GFR (MDRD) > 60 (>60) BUN/Creatinine Ratio 26.0 H (9-20) Glucose 83 (80-116) mg/dL Calcium 8.5 L (8.6-10.2) mg/dL Magnesium (1.8-2.5) mg/dL Total Bilirubin (0.1-1.3) mg/dL AST (5-25) IU/L ALT (12-36) U/L Alkaline Phosphatase (56-112) IU/L Troponin I 17.5 (4.0-60.3) pg/mL NT-Pro-B Natriuret Pep (<=125) pg/mL Total Protein (6.0-8.0) g/dL Albumin (3.5-5.2) g/dL Globulin g/dL Albumin/Globulin Ratio Triglycerides 58 (15-150) mg/dL Cholesterol 140 (50-200) mg/dL LDL Cholesterol Direct 78 (60-130) mg/dL HDL Cholesterol 53 (40-75) mg/dL Cholesterol/HDL Ratio 2.6 (0-5) SARS-CoV-2 RNA (LIVE) (NEGATIVE) Result Diagrams: 06/29/20 17:05 06/30/20 06:25 #1 Interpretation EKG Date: 06/29/20 Time: 16:56 Rhythm: A-Fib Rate (Beats/Min): 141 P-Wave: Absent QRS: Normal ST-T: Normal QT: Normal Comparison: NA - No Prior EKG EKG Interpretation Comments: Atrial fibrillation with rapid ventricular rate 141, low voltage due to body habitus. Sepsis Event Note - Evaluation Sepsis Screening Result: No Definite Risk - Focused Exam Vital Signs: Vital Signs Temp Pulse Pulse Resp BP BP Pulse Ox 06/30/20 09:40 89 154/106 H 06/30/20 07:25 97.3 F 93 18 151/92 H 98 06/30/20 06:00 86 18 165/89 H 97 06/30/20 04:00 98.1 F 92 18 138/94 H 97 06/30/20 02:00 104 H 18 144/92 H 98 06/30/20 00:00 98.1 F 92 18 146/86 H 96 06/29/20 23:13 104 H 145/87 H *Q Meaningful Use (ADM) - VTE Risk Assess *Q Each Risk Factor Represents 1 Point: Age 41 - 59 years, Swollen Legs, Current, Obesity ( BMI > 25 kg/m2) Total Score 1 Point Risk Factors: 3 Each Risk Factor Represents 2 Points: None Total Score 2 Point Risk Factors: 0 Each Risk Factor Represents 3 Points: None Total Score 3 Point Risk Factors: 0 Each Risk Factor Represents 5 Points: None Total Score 5 Point Risk Factors: 0 Venous Thromboembolism Risk Factor Score *Q: 3 - Problem List (1) New onset a-fib SNOMED Code(s): 87764537 ICD Code: I48.91 - UNSPECIFIED ATRIAL FIBRILLATION Status: Acute Current Visit: Yes Onset Date: ~06/29/20 (2) Shortness of breath SNOMED Code(s): 738521233 ICD Code: R06.02 - SHORTNESS OF BREATH Status: Acute Current Visit: Yes (3) Chest pain SNOMED Code(s): 58039929 ICD Code: R07.9 - CHEST PAIN, UNSPECIFIED Status: Acute Current Visit: Yes (4) HTN (hypertension) SNOMED Code(s): 40137717 ICD Code: I10 - ESSENTIAL (PRIMARY) HYPERTENSION Status: Chronic Current Visit: No Problem Details: uncontrolled Qualifiers: Hypertension type: essential hypertension Qualified Code(s): I10 - Essential (primary) hypertension (5) Asthma SNOMED Code(s): 973881504 ICD Code: J45.909 - UNSPECIFIED ASTHMA, UNCOMPLICATED Status: Chronic Current Visit: No (6) Morbid obesity with BMI of 60.0-69.9, adult SNOMED Code(s): 213496790, 09969326046259 ICD Code: E66.01 - MORBID (SEVERE) OBESITY DUE TO EXCESS CALORIES; Z68.44 - BODY MASS INDEX [BMI] 60.0-69.9, ADULT Status: Chronic Current Visit: Yes Problem List Initiated/Reviewed/Updated: Yes Orders Last 24hrs: Active Orders 24 hr Category Date Time Status Patient Status [ADT] Routine ADT 06/29/20 18:27 Active Cardiac Monitoring [RC] CONTINUOUS Care 06/29/20 18:30 Active EKG Documentation Completion [RC] ASDIRECTED Care 06/29/20 16:52 Active Intake and Output [RC] 06,14,22 Care 06/29/20 18:29 Active Oxygen Therapy [RC] PRN Care 06/29/20 18:27 Active Pulse Oximetry [RC] PRN Care 06/29/20 18:29 Active Up With Assistance [RC] ASDIRECTED Care 06/29/20 18:27 Active VTE/DVT Education [RC] Per Unit Routine Care 06/29/20 18:27 Active Vital Signs [RC] Q4H Care 06/29/20 18:27 Active Heart Healthy Diet [DIET] Diet 06/29/20 Dinner Ordered Docusate Sodium/Sennosides [Senna Plus] Med 06/29/20 18:27 Active 1 tab PO BID PRN Metoprolol Succinate [Toprol XL] Med 06/30/20 09:00 Active 50 mg PO DAILY Metoprolol Succinate [Toprol XL] Med 07/01/20 06:00 Active 50 mg PO DAILY@0600 Nitroglycerin [Nitrostat] Med 06/29/20 16:53 Active 0.4 mg SL Q5M PRN Ondansetron [Zofran] Med 06/29/20 18:27 Active 4 mg IV Q4H PRN Rivaroxaban [Xarelto] Med 06/30/20 18:00 Active 20 mg PO WITHDINNER Rosuvastatin [Crestor] Med 06/30/20 18:00 Ordered 5 mg PO BEDTIME Sodium Chloride 0.9% [Saline Flush] Med 06/29/20 16:52 Active 10 ml FLUSH ASDIRECTED PRN hydroCHLOROthiazide Med 06/30/20 10:45 Active 12.5 mg PO DAILY hydroCHLOROthiazide Med 07/01/20 06:00 Active 12.5 mg PO DAILY@0600 Saline Lock Insert [OM.PC] Routine Oth 06/29/20 16:52 Ordered Sequential Compression Device [OM.PC] Per Unit Routine Oth 06/29/20 18:30 Ordered Resuscitation Status Routine Resus Stat 06/29/20 18:27 Ordered EKG 12 Lead [EK] Routine Ther 06/29/20 16:51 Ordered Medication Orders Hydrochlorothiazide (Hydrochlorothiazide 12.5 Mg Cap) 12.5 mg PO DAILY [facility] Stop: 06/30/20 13:00 Hydrochlorothiazide (Hydrochlorothiazide 12.5 Mg Cap) 12.5 mg PO DAILY@0600 [facility] Metoprolol Succinate (Metoprolol Succinate 50 Mg Tab.Er) 50 mg PO DAILY [facility] Stop: 06/30/20 12:00 Last Admin: 06/30/20 09:40 Dose: 50 mg Documented by: CONNOR Metoprolol Succinate (Metoprolol Succinate 50 Mg Tab.Er) 50 mg PO DAILY@0600 [facility] Nitroglycerin (Nitroglycerin 0.4 Mg Tab.Sl) 0.4 mg SL Q5M PRN PRN Reason: Chest Pain Ondansetron HCl (Ondansetron 4 Mg/2 Ml Sdv) 4 mg IV Q4H PRN PRN Reason: Nausea/Vomiting Rivaroxaban (Rivaroxaban 20 Mg Tab) 20 mg PO WITHDINNER [facility] Rosuvastatin Calcium (Rosuvastatin 20 Mg Tab) 5 mg PO BEDTIME [facility] Senna/Docusate Sodium (Docusate Sodium/Sennosides 50-8.6 Mg Tab) 1 tab PO BID PRN PRN Reason: Constipation Sodium Chloride (Sodium Chloride 0.9% 10 Ml Syringe) 10 ml FLUSH ASDIRECTED PRN PRN Reason: Keep Vein Open Last Admin: 06/29/20 17:15 Dose: 10 ml Documented by: CONNOR Assessment/Plan Comment:: 1. Admission for observation for new onset Atrial fibrillation; hypertension, uncontrolled. 2. Atrial fibrillation: rate controlled. Spoke with [facility] Dr Lara, he would need Transesophageal echo due to his morbid obesity, we only have transthoracic echo which would not available until tomorrow. Advised to start Beta brissa, statin and speak to Anticoagulation clinic. Spoke with pharmacist at anticoagulation clinic, he would be CHADs score of 1, advised Xarelto 20 mg daily. Lipid panel: T, chol:140 LDL:78 HDL:53. Appointment made with [facility] for tomorrow at 1010 am with EKG at 940am. Metoprolol 50 mg daily. Hydrochlorothiazide 12.5 mg daily added. Crestor 5 mg at 1800. Discussed keeping overnight and discharge early in am, if blood pressures controlled can be discharged after dinner this evening after taking Xarelto & Crestor. He states that he did not sleep very well last night who prefer to go be discharged tonight, he'll have his last picker his medications for in the morning and he said he would be able to go to Cardiology appointments in the morning. Will also need to be set up for sleep study. 3. HTN: Metoprolol 50 mg & HCTZ 12.5 mg daily. If controlled will discharge this evening. 4. Regular diet. 5. DVT: Xarelto 20 mg at 1800. 6. CODE STATUS: FULL CODE. - Mortality Measure Prognosis:: Good
[2020-06-30 16:38] VITALS: BP 160/90; PULSE 82
--- NOTE | 2020-06-30 16:40 | PCM.DCSUM1 ---
Discharge Summary - Hospital Course HPI Initial Comments: Dewey presented to ER last night with 3 day history of chest pain and shortness of breath. Had been seen in the clinic, treated for asthma exacerbation with prednisone. Located chest pain substernal but denies any chest pain or shortness of breath this morning. No fevers, chills, sore throat, cough, nausea, vomiting, diarrhea, dysuria, frequency. Has chronic stasis dermatitis from venous insufficiency/peripheral edema. He takes Lasix 40 mg daily as needed for edema, last took May 01. He states he was on a blood pressure medication but didn't have any further refills and had not seen provider. No pharmacy claim history for any blood pressure medications for the past year. No previous EKG in our system. States he does snore at night, and that he was to be set up for sleep study but was not done yet. In ER: EKG showed atrial fibrillation/atrial flutter which is new, rate in 140s. Portable chest x-ray, no acute pneumonia. Troponin 2 sets negative. D Dimer was negative at 0.38. Received 2 doses of Cardizem IV in ER and last night, Metoprolol 50 mg x 1 last night and again this morning. Lovenox 40 mg x 1 given last night. No documentation of cardiology consult on ER note. Diagnosis: Stroke: No - Discharge Data Discharge Date: 06/30/20 Discharge Disposition: Home, Self-Care 01 Condition: Stable - Referral to Home Health Primary Care Physician: Radha Luis, B[employer] MA[employer] CLERK - Discharge Diagnosis/Problem(s) (1) New onset a-fib SNOMED Code(s): 06332182 ICD Code: I48.91 - UNSPECIFIED ATRIAL FIBRILLATION Status: Acute Current Visit: Yes Onset Date: ~06/29/20 (2) Shortness of breath SNOMED Code(s): 060637261 ICD Code: R06.02 - SHORTNESS OF BREATH Status: Resolved Current Visit: Yes (3) Chest pain SNOMED Code(s): 23339504 ICD Code: R07.9 - CHEST PAIN, UNSPECIFIED Status: Resolved Current Visit: Yes (4) HTN (hypertension) SNOMED Code(s): 87548750 ICD Code: I10 - ESSENTIAL (PRIMARY) HYPERTENSION Status: Chronic Current Visit: No Problem Details: controlled now 114/71 Qualifiers: Hypertension type: essential hypertension Qualified Code(s): I10 - Essential (primary) hypertension (5) Asthma SNOMED Code(s): 081975750 ICD Code: J45.909 - UNSPECIFIED ASTHMA, UNCOMPLICATED Status: Chronic Current Visit: No (6) Morbid obesity with BMI of 60.0-69.9, adult SNOMED Code(s): 868222373, 41761467880045 ICD Code: E66.01 - MORBID (SEVERE) OBESITY DUE TO EXCESS CALORIES; Z68.44 - BODY MASS INDEX [BMI] 60.0-69.9, ADULT Status: Chronic Current Visit: Yes - Patient Summary/Data Hospital Course: Received 2 doses of Cardizem, 2 doses of Metoprolol 50 mg, heart rate came down into 80-90s overnight, then came down to 70s during the day. His blood pressure this morning was still elevated 154/107, added HCTZ 12.5 mg x 1 and came down to 114/71. Once his heart rate came down to normal range, his chest pain and shortness of breath improved. He had 3 sets of troponin, all within normal range. D Dimer was normal at 0.38. Chest x-ray was unremarkable. Spoke with Dr Lara at [facility], recommended cardiology follow up, continue the Metoprolol, add a statin so started Crestor 5 mg as his lipid panel was within a normal range, also advised talking with pharmacist at [facility]agulation clinic. Spoke with Coagulation clinic, they advised since he was CHADs score 1, to start Xarelto 20 mg daily. He will get Xarelto & Crestor with dinner. He will be discharged home tonight in the care of his . He will have cardiology appointment tomorrow [address] Frederick with EKG at 940 am. - Patient Instructions Diet: Heart Healthy Diet Activity: As Tolerated Driving: Do Not Drive Showering/Bathing: May Shower Notify Provider of: Fever, Increased Pain, Swelling and Redness, Nausea and/or Vomiting Other/Special Instructions: Follow up at [facility] tomorrow SatJuly 01 at 940 am for EKG and 1010am with Dr Frederick. - Discharge Plan *PRESCRIPTION DRUG MONITORING PROGRAM REVIEWED*: Not Applicable *COPY OF PRESCRIPTION DRUG MONITORING REPORT IN PATIENT RAAD: No Prescriptions/Med Rec: Rosuvastatin [Crestor] 5 mg PO BEDTIME 30 Days #30 tablet hydroCHLOROthiazide [Hydrochlorothiazide] 12.5 mg PO DAILY@0600 30 Days #30 cap Metoprolol Succinate [Toprol XL 50mg] 50 mg PO DAILY@0600 30 Days #30 tab.er Rivaroxaban [Xarelto] 20 mg PO WITHDINNER 30 Days #30 tablet Home Medications: Home Meds Albuterol [Ventolin HFA] 2 puff INH BID 12/06/19 [History] Budesonide/Formoterol Fumarate [Budesonide-Formoterol 160-4.5] 1 puff INH BID 02/11/20 [History] Montelukast [Singulair] 10 mg PO BEDTIME 06/29/20 [History] predniSONE [Prednisone] 40 mg ASDIRECTED 06/29/20 [History] Metoprolol Succinate [Toprol XL 50mg] 50 mg PO DAILY@0600 30 Days #30 tab.er 06/30/20 [Rx] Rivaroxaban [Xarelto] 20 mg PO WITHDINNER 30 Days #30 tablet 06/30/20 [Rx] Rosuvastatin [Crestor] 5 mg PO BEDTIME 30 Days #30 tablet 06/30/20 [Rx] hydroCHLOROthiazide [Hydrochlorothiazide] 12.5 mg PO DAILY@0600 30 Days #30 cap 06/30/20 [Rx] Oxygen Therapy Mode: Room Air Patient Handouts: Heart-Healthy Eating Plan, Fall Prevention in Hospitals, Adult, Atrial Fibrillation, [id number], Venous Thromboembolism Prevention Forms: ED Department Discharge Referrals: Radha Luis NP [Primary Care Provider] - - Discharge Summary/Plan Comment DC Time >30 min.: No - General Info Date of Service: 06/30/20 Subjective Update: He denies any chest pain, shortness of breath, no nausea, vomiting. BP down to 114/71 after adding HCTZ 12.5 mg. Functional Status: Reports: Pain Controlled, Tolerating Diet - Patient Data Vitals - Most Recent: Last Vital Signs Temp 97.6 F 06/30/20 11:26 Pulse 76 06/30/20 13:00 Resp 20 06/30/20 13:00 BP 114/71 06/30/20 13:00 Pulse Ox 96 06/30/20 13:00 Weight - Most Recent: 433 lb 6 oz I&O - Last 24 hours: Intake & Output 06/30/20 06/30/20 06/30/20 06:59 14:59 22:59 Intake Total 200 Output Total 150 Balance 50 Lab Results - Last 24 hrs: Laboratory Results - last 24 hr 06/29/20 06/29/20 06/29/20 Range/Units 17:05 17:05 17:05 WBC 9.0 (3.2-10.1) x10-3/uL RBC 5.11 (3.90-5.90) x10(6)uL Hgb 15.1 (12.9-17.7) g/dL Hct 46.0 (38.3-50.1) % MCV 89.9 (80.8-98.7) fL MCH 29.6 (27.0-33.3) pg MCHC 33.0 (28.7-35.3) g/dL RDW 14.6 (12.4-15.0) % Plt Count 187 (117-477) x10(3)uL MPV 9.3 (6.7-11.0) fL Neut % (Auto) 86.6 H (40.3-71.8) % Lymph % (Auto) 9.4 L (15.8-45.3) % [place] % (Auto) 3.7 L (5.5-15.2) % Eos % (Auto) 0.1 (0.1-6.8) % Baso % (Auto) 0.2 L (0.3-3.8) % Neut # (Auto) 7.8 H (1.7-6.9) x10-3/uL Lymph # (Auto) 0.8 (0.5-4.5) x10-3/uL [place] # (Auto) 0.3 (0.0-1.2) x10-3/uL Eos # (Auto) 0.0 (0.0-0.6) x10-3/uL Baso # (Auto) 0.0 (0.0-0.3) x10-3/uL PT (9.0-11.1) sec INR (1.00-1.24) APTT (24.4-33.2) SECONDS D-Dimer, Quantitative (0.0-0.59) mg/LFEU Sodium 143 (135-145) mmol/L Potassium 4.4 (3.5-5.3) mmol/L Chloride 103 (100-110) mmol/L Carbon Dioxide 32 (21-32) mmol/L BUN 22 H (7-18) mg/dL Creatinine 1.1 (0.70-1.30) mg/dL Est Cr Clr Drug Dosing 80.34 mL/min Estimated GFR (MDRD) > 60 (>60) BUN/Creatinine Ratio 20.0 (9-20) Glucose 152 H (80-116) mg/dL Calcium 8.7 (8.6-10.2) mg/dL Magnesium (1.8-2.5) mg/dL Total Bilirubin 0.3 (0.1-1.3) mg/dL AST 29 H (5-25) IU/L ALT 48 H D (12-36) U/L Alkaline Phosphatase 94 (56-112) IU/L Troponin I 9.0 (4.0-60.3) pg/mL NT-Pro-B Natriuret Pep (<=125) pg/mL Total Protein 7.9 (6.0-8.0) g/dL Albumin 3.9 (3.5-5.2) g/dL Globulin 4.0 g/dL Albumin/Globulin Ratio 1.0 Triglycerides (15-150) mg/dL Cholesterol (50-200) mg/dL LDL Cholesterol Direct (60-130) mg/dL HDL Cholesterol (40-75) mg/dL Cholesterol/HDL Ratio (0-5) SARS-CoV-2 RNA (LIVE) (NEGATIVE) 06/29/20 06/29/20 06/29/20 Range/Units 17:05 17:05 17:05 WBC (3.2-10.1) x10-3/uL RBC (3.90-5.90) x10(6)uL Hgb (12.9-17.7) g/dL Hct (38.3-50.1) % MCV (80.8-98.7) fL MCH (27.0-33.3) pg MCHC (28.7-35.3) g/dL RDW (12.4-15.0) % Plt Count (117-477) x10(3)uL MPV (6.7-11.0) fL Neut % (Auto) (40.3-71.8) % Lymph % (Auto) (15.8-45.3) % [place] % (Auto) (5.5-15.2) % Eos % (Auto) (0.1-6.8) % Baso % (Auto) (0.3-3.8) % Neut # (Auto) (1.7-6.9) x10-3/uL Lymph # (Auto) (0.5-4.5) x10-3/uL [place] # (Auto) (0.0-1.2) x10-3/uL Eos # (Auto) (0.0-0.6) x10-3/uL Baso # (Auto) (0.0-0.3) x10-3/uL PT 10.1 (9.0-11.1) sec INR 0.94 L (1.00-1.24) APTT 24.6 (24.4-33.2) SECONDS D-Dimer, Quantitative 0.38 (0.0-0.59) mg/LFEU Sodium (135-145) mmol/L Potassium (3.5-5.3) mmol/L Chloride (100-110) mmol/L Carbon Dioxide (21-32) mmol/L BUN (7-18) mg/dL Creatinine (0.70-1.30) mg/dL Est Cr Clr Drug Dosing mL/min Estimated GFR (MDRD) (>60) BUN/Creatinine Ratio (9-20) Glucose (80-116) mg/dL Calcium (8.6-10.2) mg/dL Magnesium (1.8-2.5) mg/dL Total Bilirubin (0.1-1.3) mg/dL AST (5-25) IU/L ALT (12-36) U/L Alkaline Phosphatase (56-112) IU/L Troponin I (4.0-60.3) pg/mL NT-Pro-B Natriuret Pep 971 H (<=125) pg/mL Total Protein (6.0-8.0) g/dL Albumin (3.5-5.2) g/dL Globulin g/dL Albumin/Globulin Ratio Triglycerides (15-150) mg/dL Cholesterol (50-200) mg/dL LDL Cholesterol Direct (60-130) mg/dL HDL Cholesterol (40-75) mg/dL Cholesterol/HDL Ratio (0-5) SARS-CoV-2 RNA (LIVE) (NEGATIVE) 06/29/20 06/29/20 06/29/20 Range/Units 17:05 18:23 23:00 WBC (3.2-10.1) x10-3/uL RBC (3.90-5.90) x10(6)uL Hgb (12.9-17.7) g/dL Hct (38.3-50.1) % MCV (80.8-98.7) fL MCH (27.0-33.3) pg MCHC (28.7-35.3) g/dL RDW (12.4-15.0) % Plt Count (117-477) x10(3)uL MPV (6.7-11.0) fL Neut % (Auto) (40.3-71.8) % Lymph % (Auto) (15.8-45.3) % [place] % (Auto) (5.5-15.2) % Eos % (Auto) (0.1-6.8) % Baso % (Auto) (0.3-3.8) % Neut # (Auto) (1.7-6.9) x10-3/uL Lymph # (Auto) (0.5-4.5) x10-3/uL [place] # (Auto) (0.0-1.2) x10-3/uL Eos # (Auto) (0.0-0.6) x10-3/uL Baso # (Auto) (0.0-0.3) x10-3/uL PT (9.0-11.1) sec INR (1.00-1.24) APTT (24.4-33.2) SECONDS D-Dimer, Quantitative (0.0-0.59) mg/LFEU Sodium (135-145) mmol/L Potassium (3.5-5.3) mmol/L Chloride (100-110) mmol/L Carbon Dioxide (21-32) mmol/L BUN (7-18) mg/dL Creatinine (0.70-1.30) mg/dL Est Cr Clr Drug Dosing mL/min Estimated GFR (MDRD) (>60) BUN/Creatinine Ratio (9-20) Glucose (80-116) mg/dL Calcium (8.6-10.2) mg/dL Magnesium 2.0 (1.8-2.5) mg/dL Total Bilirubin (0.1-1.3) mg/dL AST (5-25) IU/L ALT (12-36) U/L Alkaline Phosphatase (56-112) IU/L Troponin I 11.4 (4.0-60.3) pg/mL NT-Pro-B Natriuret Pep (<=125) pg/mL Total Protein (6.0-8.0) g/dL Albumin (3.5-5.2) g/dL Globulin g/dL Albumin/Globulin Ratio Triglycerides (15-150) mg/dL Cholesterol (50-200) mg/dL LDL Cholesterol Direct (60-130) mg/dL HDL Cholesterol (40-75) mg/dL Cholesterol/HDL Ratio (0-5) SARS-CoV-2 RNA (LIVE) Negative (NEGATIVE) 06/30/20 06/30/20 06/30/20 Range/Units 06:25 06:35 06:35 WBC (3.2-10.1) x10-3/uL RBC (3.90-5.90) x10(6)uL Hgb (12.9-17.7) g/dL Hct (38.3-50.1) % MCV (80.8-98.7) fL MCH (27.0-33.3) pg MCHC (28.7-35.3) g/dL RDW (12.4-15.0) % Plt Count (117-477) x10(3)uL MPV (6.7-11.0) fL Neut % (Auto) (40.3-71.8) % Lymph % (Auto) (15.8-45.3) % [place] % (Auto) (5.5-15.2) % Eos % (Auto) (0.1-6.8) % Baso % (Auto) (0.3-3.8) % Neut # (Auto) (1.7-6.9) x10-3/uL Lymph # (Auto) (0.5-4.5) x10-3/uL [place] # (Auto) (0.0-1.2) x10-3/uL Eos # (Auto) (0.0-0.6) x10-3/uL Baso # (Auto) (0.0-0.3) x10-3/uL PT (9.0-11.1) sec INR (1.00-1.24) APTT (24.4-33.2) SECONDS D-Dimer, Quantitative (0.0-0.59) mg/LFEU Sodium 144 (135-145) mmol/L Potassium 4.1 (3.5-5.3) mmol/L Chloride 103 (100-110) mmol/L Carbon Dioxide 33 H (21-32) mmol/L BUN 26 H (7-18) mg/dL Creatinine 1.0 (0.70-1.30) mg/dL Est Cr Clr Drug Dosing 88.38 mL/min Estimated GFR (MDRD) > 60 (>60) BUN/Creatinine Ratio 26.0 H (9-20) Glucose 83 (80-116) mg/dL Calcium 8.5 L (8.6-10.2) mg/dL Magnesium (1.8-2.5) mg/dL Total Bilirubin (0.1-1.3) mg/dL AST (5-25) IU/L ALT (12-36) U/L Alkaline Phosphatase (56-112) IU/L Troponin I 17.5 (4.0-60.3) pg/mL NT-Pro-B Natriuret Pep (<=125) pg/mL Total Protein (6.0-8.0) g/dL Albumin (3.5-5.2) g/dL Globulin g/dL Albumin/Globulin Ratio Triglycerides 58 (15-150) mg/dL Cholesterol 140 (50-200) mg/dL LDL Cholesterol Direct 78 (60-130) mg/dL HDL Cholesterol 53 (40-75) mg/dL Cholesterol/HDL Ratio 2.6 (0-5) SARS-CoV-2 RNA (LIVE) (NEGATIVE) Med Orders - Current: Current Medications Hydrochlorothiazide (Hydrochlorothiazide 12.5 Mg Cap) 12.5 mg PO DAILY@0600 [facility] Metoprolol Succinate (Metoprolol Succinate 50 Mg Tab.Er) 50 mg PO DAILY@0600 [facility] Nitroglycerin (Nitroglycerin 0.4 Mg Tab.Sl) 0.4 mg SL Q5M PRN PRN Reason: Chest Pain Ondansetron HCl (Ondansetron 4 Mg/2 Ml Sdv) 4 mg IV Q4H PRN PRN Reason: Nausea/Vomiting Rivaroxaban (Rivaroxaban 20 Mg Tab) 20 mg PO WITHDINNER [facility] Rosuvastatin Calcium (Rosuvastatin 10 Mg Tab) 5 mg PO BEDTIME [facility] Senna/Docusate Sodium (Docusate Sodium/Sennosides 50-8.6 Mg Tab) 1 tab PO BID PRN PRN Reason: Constipation Sodium Chloride (Sodium Chloride 0.9% 10 Ml Syringe) 10 ml FLUSH ASDIRECTED PRN PRN Reason: Keep Vein Open Last Admin: 06/29/20 17:15 Dose: 10 ml Documented by: Discontinued Medications Aspirin (Aspirin 81 Mg Tab.Chew) 324 mg PO NOW STA Stop: 06/29/20 16:54 Last Admin: 06/29/20 17:17 Dose: 324 mg Documented by: Diltiazem HCl (Diltiazem 25 Mg/5 Ml Sdv) 15 mg IVPUSH ONETIME ONE Stop: 06/29/20 17:02 Last Admin: 06/29/20 17:17 Dose: Not Given Documented by: Diltiazem HCl (Diltiazem 25 Mg/5 Ml Sdv) 25 mg IVPUSH NOW STA Stop: 06/29/20 17:09 Last Admin: 06/29/20 17:15 Dose: 25 mg Documented by: Diltiazem HCl (Diltiazem 120 Mg Cap.Cd) 120 mg PO ONETIME ONE Stop: 06/29/20 23:04 Last Admin: 06/29/20 23:13 Dose: 120 mg Documented by: Enoxaparin Sodium (Enoxaparin 40 Mg/0.4 Ml Syringe) 40 mg SUBCUT Q24H [facility] Last Admin: 06/29/20 20:10 Dose: 40 mg Documented by: Hydrochlorothiazide (Hydrochlorothiazide 12.5 Mg Cap) 12.5 mg PO DAILY HERNAN Stop: 06/30/20 13:00 Last Admin: 06/30/20 11:27 Dose: 12.5 mg Documented by: Metoprolol Succinate (Metoprolol Succinate 50 Mg Tab.Er) 50 mg PO NOW STA Stop: 06/29/20 18:16 Last Admin: 06/29/20 18:38 Dose: 50 mg Documented by: Metoprolol Succinate (Metoprolol Succinate 50 Mg Tab.Er) 50 mg PO DAILY [facility] Stop: 06/30/20 12:00 Last Admin: 06/30/20 09:40 Dose: 50 mg Documented by: Rosuvastatin Calcium (Rosuvastatin 20 Mg Tab) 20 mg PO BEDTIME HERNAN - Exam General: Reports: Alert, Oriented, Cooperative, No Acute Distress Lungs: Reports: Clear to Auscultation, Normal Respiratory Effort Cardiovascular: Reports: Regular Rate, Regular Rhythm GI/Abdominal Exam: Normal Bowel Sounds, Soft, Non-Tender, No Distention
[2020-06-30] MEDS ORDERED: Rosuvastatin 20 MG Tab PO SCH (18:00)
[2020-06-30] MEDS ORDERED: Rosuvastatin 10 MG Tab PO SCH (18:00)
[2020-07-01] MEDS ORDERED: Hydrochlorothiazide 12.5 MG Cap PO SCH (06:00)
[2020-07-01] MEDS ORDERED: Metoprolol Succinate 50 MG Tab.ER PO SCH (06:00)
--- NOTE | 2020-07-05 13:14 | PCM.EKG ---
#1 Interpretation EKG Date: 06/29/20 Time: 16:57 Rhythm: A-Fib Ilion: Normal P-Wave: Absent QRS: Normal ST-T: Depressed QT: Normal EKG Interpretation Comments: AFib with RVR No acute changes compared to previous EKG
== END 2020-06-30 19:00 | disposition home or self-care (01) ==
LOC: FB.ED 16:47 → FB.MS 18:35
PROVIDERS: ADMIT Emergency Medicine; ATTEND Family Medicine
DX: I48.91 Unspecified atrial fibrillation (principal); R07.9 Chest pain, unspecified; R06.02 Shortness of breath; I10 Essential (primary) hypertension; J45.909 Unspecified asthma, uncomplicated; E66.01 Morbid (severe) obesity due to excess calories; Z68.44 Body mass index [BMI] 60.0-69.9, adult; Z20.822 Contact with and (suspected) exposure to COVID-19; Z79.899 Other long term (current) drug therapy; Z98.890 Other specified postprocedural states
CPT/HCPCS: 36415; 71045; 80048; 80053; 80061; 83735; 83880; 84484; 85025; 85379; 85610; 85730; 93005; 96372; 96374; 99285; 99285-25; A9270-GY; G0378; J1650; J3490; U0002

== ENCOUNTER 2020-09-03 18:37 | Emergency (ER) | payer BC ==
[2020-09-03] MEDS ORDERED: Ketorolac 30 MG/ML SDV IM STA (19:07)
[2020-09-03] MEDS ORDERED: Cyclobenzaprine 10 MG Tab PO STA (19:07)
--- NOTE | 2020-09-03 19:43 | EDM.PDOC ---
ED HPI GENERAL MEDICAL PROBLEM - General Chief Complaint: Back Pain or Injury Stated Complaint: L R BACK PAIN Time Seen by Provider: 09/03/20 19:35 Source of Information: Reports: Patient History Limitations: Reports: No Limitations - History of Present Illness INITIAL COMMENTS - FREE TEXT/NARRATIVE: Patient presented to the ED because of low back pain which started yesterday. He though his posture was bead and that's why he has the back pain. The pain is sharp with spasms and worse with movements and bending. Right Lower Back Pain Score (Numeric/FACES): 3 - Related Data Allergies Allergy/AdvReac Type Severity Reaction Status Date / Time No Known Allergies Allergy Verified 06/29/20 17:16 Home Meds: Home Meds Albuterol [Ventolin HFA] 2 puff INH BID 12/06/19 [History] Budesonide/Formoterol Fumarate [Budesonide-Formoterol 160-4.5] 1 puff INH BID 02/11/20 [History] Montelukast [Singulair] 10 mg PO BEDTIME 06/29/20 [History] Metoprolol Succinate [Toprol XL 50mg] 50 mg PO DAILY@0600 30 Days #30 tab.er 06/30/20 [Rx] Rivaroxaban [Xarelto] 20 mg PO WITHDINNER 30 Days #30 tablet 06/30/20 [Rx] Rosuvastatin [Crestor] 5 mg PO BEDTIME 30 Days #30 tablet 06/30/20 [Rx] hydroCHLOROthiazide [Hydrochlorothiazide] 12.5 mg PO DAILY@0600 30 Days #30 cap 06/30/20 [Rx] Cyclobenzaprine [Flexeril] 10 mg PO TID PRN #15 tab 09/03/20 [Rx] Diltiazem [Cardizem CD] 120 mg PO DAILY 09/03/20 [History] Ibuprofen 800 mg PO TID PRN #30 tablet 09/03/20 [Rx] Past Medical History - Past Health History Medical/Surgical History: Denies Medical/Surgical History HEENT History: Reports: Impaired Vision Cardiovascular History: Reports: Afib, Hypertension Respiratory History: Reports: Asthma Genitourinary History: Reports: None Endocrine/Metabolic History: Reports: Obesity/BMI 30+ Dermatologic History: Reports: Cellulitis - Infectious Disease History Infectious Disease History: Reports: Chicken Pox - Past Surgical History HEENT Surgical History: Reports: None GI Surgical History: Reports: Hernia, Abdominal Social & Family History - Family History Family Medical History: No Pertinent Family History - Tobacco Use Tobacco Use Status *Q: Never Tobacco User - Caffeine Use Caffeine Use: Reports: Soda Other Caffeine Use: several/daily - Recreational Drug Use Recreational Drug Use: No ED ROS GENERAL - Review of Systems Review Of Systems: See Below Constitutional: Reports: No Symptoms HEENT: Reports: No Symptoms Respiratory: Reports: No Symptoms Cardiovascular: Reports: No Symptoms Endocrine: Reports: No Symptoms GI/Abdominal: Reports: No Symptoms : Reports: No Symptoms Musculoskeletal: Reports: Back Pain, Muscle Pain Skin: Reports: No Symptoms Neurological: Reports: No Symptoms Psychiatric: Reports: No Symptoms ED EXAM,LOWER BACK PAIN/INJURY - Physical Exam Exam: See Below Exam Limited By: No Limitations General Appearance: Alert, No Apparent Distress Ears: Normal External Exam, Normal Canal Nose: Normal Inspection, Normal Mucosa, No Blood Throat/Mouth: Normal Inspection, Normal Lips, Normal Teeth Head: Atraumatic, Normocephalic Neck: Normal Inspection, Supple, Non-Tender, Full Range of Motion Respiratory/Chest: No Respiratory Distress, Lungs Clear, Normal Breath Sounds, No Accessory Muscle Use, Chest Non-Tender Cardiovascular: Normal Peripheral Pulses, Regular Rate, Rhythm, No Edema, No Gallop, No JVD, No Murmur, No Rub GI/Abdominal: Normal Bowel Sounds, Soft, Non-Tender, No Organomegaly, No Distention, No Abnormal Bruit Rectal (Males) Exam: Normal Exam, Normal Rectal Tone, Prostate Normal Back Exam: Normal Inspection, Full Range of Motion, Muscle Spasm Extremities: Normal Inspection, Normal Range of Motion, Non-Tender, No Pedal Edema Neurological: Alert, Normal Mood/Affect, Normal Dorsiflexion, CN II-XII Intact, Normal Plantar Flexion, Normal Gait, Normal Reflexes Course - Vital Signs Text/Narrative:: Toradol 60 mg IM x1 Flexeril 10 mg PO x1 Last Recorded V/S: Last Vital Signs Temp 36.5 C 09/03/20 19:22 Pulse 87 09/03/20 19:22 Resp 18 09/03/20 19:22 BP 144/104 H 09/03/20 19:22 Pulse Ox 96 09/03/20 19:22 - Orders/Labs/Meds Meds: Medications Discontinued Medications Generic Name Dose Route Start Last Admin Trade Name Freq PRN Reason Stop Dose Admin Cyclobenzaprine HCl 10 mg 09/03/20 19:07 09/03/20 19:14 Cyclobenzaprine 10 Mg Tab PO 09/03/20 19:08 10 mg NOW STA Administration Ketorolac Tromethamine 60 mg 09/03/20 19:07 09/03/20 19:14 Ketorolac 30 Mg/Ml Sdv IM 09/03/20 19:08 60 mg NOW STA Administration Departure - Departure Time of Disposition: 19:40 Disposition: Home, Self-Care 01 Condition: Good Clinical Impression: Lumbosacral strain - Discharge Information Prescriptions: Cyclobenzaprine [Flexeril] 10 mg PO TID PRN #15 tab PRN Reason: Spasms Ibuprofen 800 mg PO TID PRN #30 tablet PRN Reason: Pain Referrals: Francine Townsend PA [Primary Care Provider] - Additional Instructions: Please read discharge instructions on low back strain Apply ice or heat whichever makes the pain feel better Ibuprofen 800 mg with tylenol 1000 mg every 8 hours as needed for pain Flexeril 10 mg every 8 hours as needed for spams Follow up as needed Sepsis Event Note (ED) - Evaluation Sepsis Screening Result: No Definite Risk - Focused Exam Vital Signs: Vital Signs Temp Pulse Resp BP Pulse Ox 09/03/20 19:22 36.5 C 87 18 144/104 H 96
[2020-09-03 19:55] VITALS: BP 123/88; PULSE 79
== END 2020-09-03 19:53 | disposition home or self-care (01) ==
LOC: FB.ED 18:37
DX: S39.012A Strain of muscle, fascia and tendon of lower back, initial encounter (principal); I48.91 Unspecified atrial fibrillation; I10 Essential (primary) hypertension; E66.9 Obesity, unspecified; Z68.30 Body mass index [BMI] 30.0-30.9, adult; X50.1XXA Overexertion from prolonged static or awkward postures, initial encounter
CPT/HCPCS: 96372; 99283; A9270; J1885

== ENCOUNTER 2020-10-10 20:13 | Emergency (ER) | payer BC ==
[2020-10-10] MEDS ORDERED: Aspirin 81 MG Tab.Chew PO ONE (20:43)
[2020-10-10] MEDS ORDERED: Sodium Chloride 0.9% 10 ML Syringe FLUSH PRN (20:44)
--- NOTE | 2020-10-10 20:53 | EDM.PDOC ---
ED HPI GENERAL MEDICAL PROBLEM - General Chief Complaint: Respiratory Problem Stated Complaint: DIFFICULTY BREATHING. TIGHT CHEST Time Seen by Provider: 10/10/20 20:46 Source of Information: Reports: Patient History Limitations: Reports: No Limitations - History of Present Illness INITIAL COMMENTS - FREE TEXT/NARRATIVE: Patient developed SOB, diaphoresis, lightheadedness, and chest tightness at 1800 today. Symptoms resolved after four Albuterol treatments. Patient denies chest discomfort or SOB at this time. He has noticed dyspnea on exertion for the last 2-3 days. Denies cough. He is fully vaccinated for COVID, received 2nd injection on 10/07/20. No prior h/o CAD. He was recently diagnosed with Afib, for which he takes Xarelto. Patient also has a h/o Asthma. Duration: Day(s): (3) - Related Data Allergies Allergy/AdvReac Type Severity Reaction Status Date / Time No Known Allergies Allergy Verified 06/29/20 17:16 Home Meds: Home Meds Albuterol [Ventolin HFA] 2 puff INH BID 12/06/19 [History] Budesonide/Formoterol Fumarate [Budesonide-Formoterol 160-4.5] 1 puff INH BID 02/11/20 [History] Montelukast [Singulair] 10 mg PO BEDTIME 06/29/20 [History] Metoprolol Succinate [Toprol XL 50mg] 50 mg PO DAILY@0600 30 Days #30 tab.er 06/30/20 [Rx] Rivaroxaban [Xarelto] 20 mg PO WITHDINNER 30 Days #30 tablet 06/30/20 [Rx] Rosuvastatin [Crestor] 5 mg PO BEDTIME 30 Days #30 tablet 06/30/20 [Rx] hydroCHLOROthiazide [Hydrochlorothiazide] 12.5 mg PO DAILY@0600 30 Days #30 cap 06/30/20 [Rx] Cyclobenzaprine [Flexeril] 10 mg PO TID PRN #15 tab 09/03/20 [Rx] Diltiazem [Cardizem CD] 120 mg PO DAILY 09/03/20 [History] Ibuprofen 800 mg PO TID PRN #30 tablet 09/03/20 [Rx] Furosemide [Lasix] 20 mg PO DAILY #15 tab 10/10/20 [Rx] Potassium Chloride 10 meq PO DAILY #15 cap.er 10/10/20 [Rx] lisinopriL [Lisinopril] 2.5 mg PO DAILY #15 tablet 10/10/20 [Rx] Past Medical History HEENT History: Reports: Impaired Vision Cardiovascular History: Reports: Afib, Hypertension. Denies: CAD Respiratory History: Reports: Asthma Genitourinary History: Reports: None Endocrine/Metabolic History: Reports: Obesity/BMI 30+ Dermatologic History: Reports: Cellulitis - Infectious Disease History Infectious Disease History: Reports: Chicken Pox - Past Surgical History HEENT Surgical History: Reports: None GI Surgical History: Reports: Hernia, Abdominal Social & Family History - Family History Family Medical History: No Pertinent Family History - Tobacco Use Tobacco Use Within Last Twelve Months: No - Caffeine Use Caffeine Use: Reports: Soda Other Caffeine Use: several/daily ED ROS GENERAL - Review of Systems Review Of Systems: Comprehensive ROS is negative, except as noted in HPI. ED EXAM, GENERAL - Physical Exam Exam: See Below Exam Limited By: No Limitations General Appearance: Alert, WD/WN, No Apparent Distress Throat/Mouth: No Airway Compromise Head: Atraumatic, Normocephalic Neck: Full Range of Motion Respiratory/Chest: No Respiratory Distress, Lungs Clear, Normal Breath Sounds Cardiovascular: Regular Rate, Rhythm, No Murmur GI/Abdominal: Other (pitting edema to low abdomen) Extremities: Normal Range of Motion, Non-Tender, Pedal Edema, Other (right lower leg ruptured blister, no infection.) Neurological: Alert, Oriented, Normal Cognition Psychiatric: Normal Affect, Normal Mood Skin Exam: Warm, Dry #1 Interpretation EKG Date: 10/10/20 Time: 21:10 Rhythm: A-Fib Rate (Beats/Min): 105 Ophelia: Normal P-Wave: Absent QRS: Normal ST-T: Normal Course - Vital Signs Last Recorded V/S: Last Vital Signs Temp 36.2 C 10/10/20 20:26 Pulse 91 10/10/20 21:29 Resp 18 10/10/20 21:29 BP 118/80 10/10/20 21:36 Pulse Ox 95 10/10/20 21:29 - Orders/Labs/Meds Orders: Active Orders 24 hr Category Date Time Status EKG Documentation Completion [RC] ASDIRECTED Care 10/10/20 20:43 Active CXR [Chest 2V] [CR] Stat Exams 10/10/20 20:42 Taken Sodium Chloride 0.9% [Saline Flush] Med 10/10/20 20:44 Active 10 ml FLUSH ASDIRECTED PRN Saline Lock Insert [OM.PC] Routine Oth 10/10/20 20:44 Ordered EKG 12 Lead [EK] Stat Ther 10/10/20 20:42 Ordered Medication Orders Sodium Chloride (Sodium Chloride 0.9% 10 Ml Syringe) 10 ml FLUSH ASDIRECTED PRN PRN Reason: Keep Vein Open Last Admin: 10/10/20 21:51 Dose: 10 ml Documented by: KELVIN Labs: Laboratory Tests 10/10/20 10/10/20 10/10/20 Range/Units 20:50 20:50 20:50 WBC 5.9 (3.2-10.1) x10-3/uL RBC 4.96 (3.90-5.90) x10(6)uL Hgb 14.6 (12.9-17.7) g/dL Hct 44.9 (38.3-50.1) % MCV 90.6 (80.8-98.7) fL MCH 29.3 (27.0-33.3) pg MCHC 32.4 (28.7-35.3) g/dL RDW 14.7 (12.4-15.0) % Plt Count 183 (117-477) x10(3)uL MPV 8.3 (6.7-11.0) fL Neut % (Auto) 69.1 (40.3-71.8) % Lymph % (Auto) 17.6 (15.8-45.3) % [place] % (Auto) 9.0 (5.5-15.2) % Eos % (Auto) 3.4 (0.1-6.8) % Baso % (Auto) 0.9 (0.3-3.8) % Neut # (Auto) 4.1 (1.7-6.9) x10-3/uL Lymph # (Auto) 1.0 (0.5-4.5) x10-3/uL [place] # (Auto) 0.5 (0.0-1.2) x10-3/uL Eos # (Auto) 0.2 (0.0-0.6) x10-3/uL Baso # (Auto) 0.1 (0.0-0.3) x10-3/uL PT 15.4 H (9.0-11.1) sec INR 1.47 H (1.00-1.24) APTT 33.5 H (24.4-33.2) SECONDS Sodium 144 (135-145) mmol/L Potassium 4.0 (3.5-5.3) mmol/L Chloride 104 (100-110) mmol/L Carbon Dioxide 32 (21-32) mmol/L BUN 18 (7-18) mg/dL Creatinine 1.2 (0.70-1.30) mg/dL Est Cr Clr Drug Dosing TNP Estimated GFR (MDRD) > 60 (>60) BUN/Creatinine Ratio 15.0 (9-20) Glucose 107 (80-116) mg/dL Calcium 8.6 (8.6-10.2) mg/dL Total Bilirubin 0.6 (0.1-1.3) mg/dL AST 20 D (5-25) IU/L ALT 25 D (12-36) U/L Alkaline Phosphatase 73 (56-112) IU/L Troponin I (4.0-60.3) pg/mL NT-Pro-B Natriuret Pep (<=125) pg/mL Total Protein 7.3 (6.0-8.0) g/dL Albumin 3.5 (3.5-5.2) g/dL Globulin 3.8 g/dL Albumin/Globulin Ratio 0.9 10/10/20 10/10/20 Range/Units 20:50 20:50 WBC (3.2-10.1) x10-3/uL RBC (3.90-5.90) x10(6)uL Hgb (12.9-17.7) g/dL Hct (38.3-50.1) % MCV (80.8-98.7) fL MCH (27.0-33.3) pg MCHC (28.7-35.3) g/dL RDW (12.4-15.0) % Plt Count (117-477) x10(3)uL MPV (6.7-11.0) fL Neut % (Auto) (40.3-71.8) % Lymph % (Auto) (15.8-45.3) % [place] % (Auto) (5.5-15.2) % Eos % (Auto) (0.1-6.8) % Baso % (Auto) (0.3-3.8) % Neut # (Auto) (1.7-6.9) x10-3/uL Lymph # (Auto) (0.5-4.5) x10-3/uL [place] # (Auto) (0.0-1.2) x10-3/uL Eos # (Auto) (0.0-0.6) x10-3/uL Baso # (Auto) (0.0-0.3) x10-3/uL PT (9.0-11.1) sec INR (1.00-1.24) APTT (24.4-33.2) SECONDS Sodium (135-145) mmol/L Potassium (3.5-5.3) mmol/L Chloride (100-110) mmol/L Carbon Dioxide (21-32) mmol/L BUN (7-18) mg/dL Creatinine (0.70-1.30) mg/dL Est Cr Clr Drug Dosing Estimated GFR (MDRD) (>60) BUN/Creatinine Ratio (9-20) Glucose (80-116) mg/dL Calcium (8.6-10.2) mg/dL Total Bilirubin (0.1-1.3) mg/dL AST (5-25) IU/L ALT (12-36) U/L Alkaline Phosphatase (56-112) IU/L Troponin I 6.9 (4.0-60.3) pg/mL NT-Pro-B Natriuret Pep 1331 H* (<=125) pg/mL Total Protein (6.0-8.0) g/dL Albumin (3.5-5.2) g/dL Globulin g/dL Albumin/Globulin Ratio Meds: Medications Generic Name Dose Route Start Last Admin Trade Name Freq PRN Reason Stop Dose Admin Sodium Chloride 10 ml 10/10/20 20:44 10/10/20 21:51 Sodium Chloride 0.9% 10 Ml Syringe FLUSH 10 ml ASDIRECTED PRN Administration Keep Vein Open Discontinued Medications Generic Name Dose Route Start Last Admin Trade Name Freq PRN Reason Stop Dose Admin Aspirin 324 mg 10/10/20 20:43 10/10/20 21:07 Aspirin 81 Mg Tab.Chew PO 10/10/20 20:44 324 mg ONETIME ONE Administration Furosemide 20 mg 10/10/20 21:25 10/10/20 21:43 Furosemide 20 Mg/2 Ml Vial IVPUSH 10/10/20 21:26 20 mg ONETIME ONE Administration Furosemide Confirm 10/10/20 21:43 Furosemide 20 Mg/2 Ml Vial Administered 10/10/20 21:44 Dose 20 mg .ROUTE .STK-MED ONE Lisinopril 2.5 mg 10/10/20 21:27 10/10/20 21:36 Lisinopril 2.5 Mg Tab PO 10/10/20 21:28 2.5 mg .ONCE ONE Administration Lisinopril Confirm 10/10/20 21:34 10/10/20 21:50 Lisinopril 5 Mg Tab Administered 10/10/20 21:35 Not Given Dose 5 mg .ROUTE .STK-MED ONE - Radiology Interpretation Free Text/Narrative:: CXR: No acute process (ED provider interpretation) - Re-Assessments/Exams Free Text/Narrative Re-Assessment/Exam: 10/10/20 21:38 HR improved to 91, Sa02 improved to 95% RA. Departure - Departure Time of Disposition: 21:40 Disposition: Home, Self-Care 01 Condition: Good Clinical Impression: New onset of congestive heart failure Atrial fibrillation Qualifiers: Atrial fibrillation type: unspecified chronic Qualified Code(s): I48.20 - Chronic atrial fibrillation, unspecified - Discharge Information *PRESCRIPTION DRUG MONITORING PROGRAM REVIEWED*: No *COPY OF PRESCRIPTION DRUG MONITORING REPORT IN PATIENT RAAD: Not Applicable Prescriptions: Furosemide [Lasix] 20 mg PO DAILY #15 tab lisinopriL [Lisinopril] 2.5 mg PO DAILY #15 tablet Potassium Chloride 10 meq PO DAILY #15 cap.er Instructions: Heart Failure, Self Care, [id number], Atrial Fibrillation, [id number] Referrals: Radha Luis NP [Ordering Only Provider] - 2 Days Roberta Frederick MD [Ordering Only Provider] - 3 Days Forms: ED Department Discharge Additional Instructions: Continue your current medicaitons. Fill the prescriptions for Lasix, Lisinopril, and Potassium at [facility] and take as directed. Follow up with your Primary Physician and Cardiology in 2-3 days. Return to the ER if symptoms worsen. Sepsis Event Note (ED) - Focused Exam Vital Signs: Vital Signs Temp Pulse Resp BP BP Pulse Ox 10/10/20 21:36 118/80 10/10/20 21:29 91 18 118/80 95 10/10/20 20:26 36.2 C 118 H 20 135/88 93 L - My Orders Last 24 Hours: My Active Orders 10/10/20 20:42 CXR [Chest 2V] [CR] Stat EKG 12 Lead [EK] Stat 10/10/20 20:43 EKG Documentation Completion [RC] ASDIRECTED 10/10/20 20:44 Sodium Chloride 0.9% [Saline Flush] 10 ml FLUSH ASDIRECTED PRN Saline Lock Insert [OM.PC] Routine - Assessment/Plan Last 24 Hours: My Active Orders 10/10/20 20:42 CXR [Chest 2V] [CR] Stat EKG 12 Lead [EK] Stat 10/10/20 20:43 EKG Documentation Completion [RC] ASDIRECTED 10/10/20 20:44 Sodium Chloride 0.9% [Saline Flush] 10 ml FLUSH ASDIRECTED PRN Saline Lock Insert [OM.PC] Routine
[2020-10-10] MEDS ORDERED: Lisinopril 2.5 MG Tab PO ONE (21:27)
[2020-10-10 21:30] VITALS: BP 118/80; PULSE 91
[2020-10-10] MEDS ORDERED: Lisinopril 5 MG Tab ONE (21:34)
[2020-10-10] MEDS: Furosemide 20 MG/2 ML VIAL IVPUSH ONE ×2 (21:36→21:43)
[2020-10-10] MEDS ORDERED: Lisinopril 5 MG Tab PO ONE (21:36)
[2020-10-10] MEDS ORDERED: Furosemide 20 MG/2 ML VIAL ONE (21:43)
--- NOTE | 2020-10-11 10:42 | CR ---
INDICATION: Chest tightness. CHEST TWO VIEWS: PA and lateral views of the chest 10/10/20 were compared with 06/29/20 and 12/06/19. Evidence of exogenous obesity is again noted. The heart appears to be at the upper limits of normal in size similar to the previous examination, or slightly enlarged. Upper lung field pulmonary vasculature is mildly prominent raising question of minimal or early CHF. This should be correlated clinically. Pulmonary markings otherwise are similar to the previous examination without a definite active infiltrate or effusion. Slightly flattened diaphragm leads with slightly prominent AP diameter and mild hyperaeration raise question of COPD additionally. Lateral pleural thickening is noted mostly on the right suggesting mild pleural fibrosis. IMPRESSION: 1. ASHD with suggestion of minimal or early CHF - correlate clinically. 2. Possible COPD - correlate clinically. 3. Exogenous obesity. 4. Somewhat heavy markings again noted likely representing a mild pulmonary fibrosis. MTDD
== END 2020-10-10 22:00 | disposition home or self-care (01) ==
LOC: FB.ED 20:13
DX: I11.0 Hypertensive heart disease with heart failure (principal); I50.9 Heart failure, unspecified; I48.20 Chronic atrial fibrillation, unspecified; E66.9 Obesity, unspecified; Z68.44 Body mass index [BMI] 60.0-69.9, adult; Z79.01 Long term (current) use of anticoagulants; Z79.899 Other long term (current) drug therapy
CPT/HCPCS: 36415; 71046; 80053; 83880; 84484; 85025; 85610; 85730; 93005; 93010; 96374; 99284; 99285-25; A9270-GY; J1940

== ENCOUNTER 2023-02-01 06:56 | Emergency (ER) | payer BC, OTHER ==
[2023-02-01 08:06] LABS: BASOPHILS PERCENT AUTO 0.8 % (0.3-3.8); EOSINOPHILS ABSOLUTE AUTO 0.2 x10-3/uL (0.0-0.6); EOSINOPHILS PERCENT AUTO 3.2 % (0.1-6.8); HEMATOCRIT 44.1 % (38.3-50.1); HEMOGLOBIN 14.8 g/dL (12.9-17.7); LYMPHOCYTES ABSOLUTE AUTO 1.2 x10-3/uL (0.5-4.5); LYMPHOCYTES PERCENT AUTO 19.8 % (15.8-45.3); MEAN CORPUSCULAR HEMOGLOBIN 30.6 pg (27.0-33.3); MEAN CORPUSCULAR HGB CONC 33.6 g/dL (28.7-35.3); MEAN CORPUSCULAR VOLUME 91.2 fL (80.8-98.7); MEAN PLATELET VOLUME 8.1 fL (6.7-11.0); MONOCYTES ABSOLUTE AUTO 0.5 x10-3/uL (0.0-1.2); MONOCYTES PERCENT AUTO 9.1 % (5.5-15.2); NEUTROPHILS PERCENT AUTO 67.1 % (40.3-71.8); PLATELET COUNT,PLT 155 x10(3)uL (117-477); RED BLOOD CELL COUNT 4.84 x10(6)uL (3.90-5.90); RED CELL DISTRIBUTION WIDTH 14.7 % (12.4-15.0); WHITE BLOOD CELL COUNT,WBC 5.9 x10-3/uL (3.2-10.1)
[2023-02-01 08:12] LABS: BLOOD UREA NITROGEN,BUN 22 mg/dL (7-18); CALCIUM 8.8 mg/dL (8.6-10.2); CARBON DIOXIDE,CO2 32 mmol/L (21-32); CHLORIDE,CL 104 mmol/L (100-110); ESTIMATED GFR 91 mL/min (>60); GLUCOSE RANDOM 94 mg/dL (80-116); POTASSIUM,K 4.1 mmol/L (3.5-5.3); SODIUM,NA 140 mmol/L (135-145)
[2023-02-01 08:18] LABS: A/G RATIO 0.8; ALANINE AMINOTRANSFERASE,ALT 24 U/L (12-36); ALBUMIN 3.4 g/dL (3.5-5.2); ALKALINE PHOSPHATASE 94 IU/L (56-112); ASPARTATE AMNIOTRANSFERASE,AST 16 IU/L (5-25); BILIRUBIN TOTAL 0.6 mg/dL (0.1-1.3); PROTEIN TOTAL,TP 7.6 g/dL (6.0-8.0)
[2023-02-02 09:26] VITALS: PULSE 110
== END 2023-02-01 09:22 | disposition home or self-care (01) ==
LOC: FB.ED 06:56
DX: I95.1 Orthostatic hypotension (principal); I48.91 Unspecified atrial fibrillation; R00.2 Palpitations; I10 Essential (primary) hypertension; J45.909 Unspecified asthma, uncomplicated; E66.9 Obesity, unspecified; Z68.35 Body mass index [BMI] 35.0-35.9, adult; Z79.899 Other long term (current) drug therapy
CPT/HCPCS: 36415; 80053; 84484; 85025; 93005; 99285

== ENCOUNTER 2023-06-08 08:16 | Emergency (ER) | payer OTHER ==
[2023-06-08 08:31] VITALS: BP 107/84; PULSE 99
[2023-06-08] MEDS: methylPREDNISolone Sodium Succinate 125 MG/2 ML SDV IM ONE (08:43)
[2023-06-08] MEDS: Albuterol/Ipratropium 3.0-0.5 MG/3 ML Neb Soln NEB ONE (08:44)
== END 2023-06-08 09:22 | disposition home or self-care (01) ==
LOC: FB.ED 08:16
DX: J45.901 Unspecified asthma with (acute) exacerbation (principal); I10 Essential (primary) hypertension; Z79.899 Other long term (current) drug therapy
CPT/HCPCS: 96372; 99284; J2930; J7620

== ENCOUNTER 2024-04-11 09:33 | Emergency (ER) | payer OTHER ==
[2024-04-11] MEDS ORDERED: Sodium Chloride 0.9% 10 ML Syringe FLUSH PRN (10:00)
[2024-04-11] MEDS: Albuterol/Ipratropium 3.0-0.5 MG/3 ML Neb Soln NEB ONE (10:30)
[2024-04-11 10:38] LABS: BASOPHILS ABSOLUTE AUTO 0.1 x10-3/uL (0.0-0.3); BASOPHILS PERCENT AUTO 0.9 % (0.3-3.8); EOSINOPHILS ABSOLUTE AUTO 0.1 x10-3/uL (0.0-0.6); EOSINOPHILS PERCENT AUTO 1.5 % (0.1-6.8); HEMATOCRIT 41.2 % (38.3-50.1); HEMOGLOBIN 13.8 g/dL (12.9-17.7); LYMPHOCYTES ABSOLUTE AUTO 0.7 x10-3/uL (0.5-4.5); LYMPHOCYTES PERCENT AUTO 10.4 % (15.8-45.3); MEAN CORPUSCULAR HEMOGLOBIN 30.7 pg (27.0-33.3); MEAN CORPUSCULAR HGB CONC 33.5 g/dL (28.7-35.3); MEAN CORPUSCULAR VOLUME 91.8 fL (80.8-98.7); MEAN PLATELET VOLUME 8.3 fL (6.7-11.0); MONOCYTES ABSOLUTE AUTO 0.5 x10-3/uL (0.0-1.2); MONOCYTES PERCENT AUTO 7.1 % (5.5-15.2); NEUTROPHILS ABSOLUTE AUTO 5.5 x10-3/uL (1.7-6.9); NEUTROPHILS PERCENT AUTO 80.1 % (40.3-71.8); PLATELET COUNT,PLT 144 x10(3)uL (117-477); RED BLOOD CELL COUNT 4.49 x10(6)uL (3.90-5.90); RED CELL DISTRIBUTION WIDTH 15.1 % (12.4-15.0); WHITE BLOOD CELL COUNT,WBC 6.9 x10-3/uL (3.2-10.1)
[2024-04-11 10:48] LABS: BLOOD UREA NITROGEN,BUN 18 mg/dL (7-18); BUN/CREATININE RATIO 16.4 (9-20); CALCIUM 8.4 mg/dL (8.6-10.2); CARBON DIOXIDE,CO2 29 mmol/L (21-32); CHLORIDE,CL 109 mmol/L (100-110); CREATININE 1.1 mg/dL (0.70-1.30); ESTIMATED GFR 80 mL/min (>60); GLUCOSE RANDOM 123 mg/dL (80-116); POTASSIUM,K 4.2 mmol/L (3.5-5.3); SODIUM,NA 145 mmol/L (135-145)
[2024-04-11 10:53] LABS: A/G RATIO 1.1; ALANINE AMINOTRANSFERASE,ALT 25 U/L (12-36); ALBUMIN 3.3 g/dL (3.5-5.2); ALKALINE PHOSPHATASE 76 IU/L (56-112); ASPARTATE AMNIOTRANSFERASE,AST 18 IU/L (5-25); BILIRUBIN TOTAL 0.6 mg/dL (0.1-1.3); PROTEIN TOTAL,TP 6.4 g/dL (6.0-8.0)
[2024-04-11 11:04] LABS: C-REACTIVE PROTEIN < 0.50 mg/dL (<0.50); PRO B-TYPE NATRIUR PEPT,BNPPRO 1011 pg/mL (<=125)
[2024-04-11 11:06] LABS: INFLUENZA A NAA NEGATIVE (NEGATIVE); INFLUENZA B NAA NEGATIVE (NEGATIVE); RESPIRATORY SYNCYTIAL VIR NAA NEGATIVE (NEGATIVE)
[2024-04-11 11:10] LABS: CORONAVIRUS COVID-19 NAA NEGATIVE (NEGATIVE)
[2024-04-11] MEDS: Furosemide 40 MG/4 ML VIAL IVPUSH ONE (11:34)
[2024-04-11 13:00] VITALS: BP 119/85; PULSE 79
== END 2024-04-11 13:10 | disposition home or self-care (01) ==
LOC: FB.ED 09:33
DX: I11.0 Hypertensive heart disease with heart failure (principal); I50.9 Heart failure, unspecified; I48.91 Unspecified atrial fibrillation; J45.909 Unspecified asthma, uncomplicated; E66.9 Obesity, unspecified; Z79.51 Long term (current) use of inhaled steroids; Z79.01 Long term (current) use of anticoagulants; Z79.899 Other long term (current) drug therapy
CPT/HCPCS: 0241U; 71046; 80053; 83880; 84484; 85025; 86140; 93005; 96374; 99285; J1940; J7620

== ENCOUNTER 2024-06-21 06:10 | Emergency (ER) | payer BC, OTHER ==
[2024-06-21] MEDS: Albuterol/Ipratropium 3.0-0.5 MG/3 ML Neb Soln NEB ONE (06:33)
[2024-06-21] MEDS: methylPREDNISolone Sodium Succinate 125 MG/2 ML SDV IM ONE (06:34)
[2024-06-21 06:57] VITALS: BP 154/100; PULSE 101
== END 2024-06-21 06:58 | disposition home or self-care (01) ==
LOC: FB.ED 06:10
DX: J45.901 Unspecified asthma with (acute) exacerbation (principal); I48.91 Unspecified atrial fibrillation; I11.0 Hypertensive heart disease with heart failure; I50.9 Heart failure, unspecified; E66.9 Obesity, unspecified; Z79.51 Long term (current) use of inhaled steroids; Z79.01 Long term (current) use of anticoagulants; Z79.899 Other long term (current) drug therapy
CPT/HCPCS: 96372; 99284; A9270-GY; J2919

== ENCOUNTER 2024-07-18 09:40 | Emergency (ER) | payer BC ==
[2024-07-18] MEDS: Sodium Chloride 0.9% 10 ML Syringe FLUSH PRN (10:15)
[2024-07-18] MEDS: Metoprolol Tartrate 5 MG/5 ML SDV IVPUSH ONE (10:15)
[2024-07-18 10:18] LABS: BASOPHILS PERCENT AUTO 0.5 % (0.3-3.8); EOSINOPHILS ABSOLUTE AUTO 0.1 x10-3/uL (0.0-0.6); EOSINOPHILS PERCENT AUTO 1.2 % (0.1-6.8); HEMATOCRIT 43.3 % (38.3-50.1); HEMOGLOBIN 14.8 g/dL (12.9-17.7); LYMPHOCYTES ABSOLUTE AUTO 0.8 x10-3/uL (0.5-4.5); LYMPHOCYTES PERCENT AUTO 11.4 % (15.8-45.3); MEAN CORPUSCULAR HEMOGLOBIN 30.8 pg (27.0-33.3); MEAN CORPUSCULAR HGB CONC 34.1 g/dL (28.7-35.3); MEAN CORPUSCULAR VOLUME 90.3 fL (80.8-98.7); MEAN PLATELET VOLUME 8.3 fL (6.7-11.0); MONOCYTES ABSOLUTE AUTO 0.6 x10-3/uL (0.0-1.2); MONOCYTES PERCENT AUTO 8.7 % (5.5-15.2); NEUTROPHILS ABSOLUTE AUTO 5.3 x10-3/uL (1.7-6.9); NEUTROPHILS PERCENT AUTO 78.2 % (40.3-71.8); PLATELET COUNT,PLT 173 x10(3)uL (117-477); RED CELL DISTRIBUTION WIDTH 14.1 % (12.4-15.0); WHITE BLOOD CELL COUNT,WBC 6.8 x10-3/uL (3.2-10.1)
[2024-07-18 10:22] LABS: BLOOD UREA NITROGEN,BUN 19 mg/dL (7-18); BUN/CREATININE RATIO 13.6 (9-20); CALCIUM 8.9 mg/dL (8.6-10.2); CARBON DIOXIDE,CO2 28 mmol/L (21-32); CHLORIDE,CL 107 mmol/L (100-110); CREATININE 1.4 mg/dL (0.70-1.30); ESTIMATED GFR 60 mL/min (>60); GLUCOSE RANDOM 106 mg/dL (80-116); POTASSIUM,K 3.7 mmol/L (3.5-5.3); SODIUM,NA 143 mmol/L (135-145)
[2024-07-18 10:28] LABS: ALANINE AMINOTRANSFERASE,ALT 26 U/L (12-36); ALBUMIN 3.6 g/dL (3.5-5.2); ALKALINE PHOSPHATASE 76 IU/L (56-112); ASPARTATE AMNIOTRANSFERASE,AST 20 IU/L (5-25); BILIRUBIN TOTAL 1.1 mg/dL (0.1-1.3); MAGNESIUM 1.7 mg/dL (1.8-2.5); PROTEIN TOTAL,TP 7.4 g/dL (6.0-8.0)
[2024-07-18 10:33] LABS: LACTIC ACID 1.3 mmol/L (0.4-2.0)
[2024-07-18 10:36] LABS: C-REACTIVE PROTEIN 1.38 mg/dL (<0.50)
[2024-07-18] MEDS: Diltiazem 25 MG/5 ML SDV IVPUSH ONE (10:48)
[2024-07-18] MEDS: cefTRIAXone 1 GM Vial IVPUSH ONE (11:11)
[2024-07-18] MEDS: Diltiazem 120 MG Cap.CD PO ONE (11:11)
[2024-07-18 11:12] VITALS: BP 111/62; PULSE 88
== END 2024-07-18 11:40 | disposition home or self-care (01) ==
LOC: FB.ED 09:40
DX: I48.91 Unspecified atrial fibrillation (principal); L03.311 Cellulitis of abdominal wall; L03.115 Cellulitis of right lower limb; L03.116 Cellulitis of left lower limb; I11.0 Hypertensive heart disease with heart failure; I50.9 Heart failure, unspecified; J45.909 Unspecified asthma, uncomplicated; Z79.51 Long term (current) use of inhaled steroids; Z79.899 Other long term (current) drug therapy; Z86.16 Personal history of COVID-19; Z68.44 Body mass index [BMI] 60.0-69.9, adult
CPT/HCPCS: 71045; 80053; 83605; 83735; 83880; 84484; 85025; 86140; 93005; 93010; 96374; 96375; 99284; 99285-25; A9270-GY; J0696; J3490

== ENCOUNTER 2024-08-02 05:44 | Emergency (ER) | payer BC ==
[2024-08-02] MEDS: Albuterol/Ipratropium 3.0-0.5 MG/3 ML Neb Soln NEB ONE (06:47)
[2024-08-02 07:05] VITALS: BP 133/82; PULSE 86
[2024-08-02] MEDS ORDERED: Azithromycin 500 MG Tab PO ONE (07:14)
[2024-08-02] MEDS: Doxycycline 100 MG Tab PO ONE (07:45)
[2024-08-02] MEDS: predniSONE 20 MG Tab PO ONE (07:45)
[2024-08-02] MEDS: Magnesium Oxide 400 MG Tab PO ONE (07:45)
== END 2024-08-02 07:48 | disposition home or self-care (01) ==
LOC: FB.ED 05:44
DX: J45.901 Unspecified asthma with (acute) exacerbation (principal); E83.42 Hypomagnesemia; R79.89 Other specified abnormal findings of blood chemistry; I11.0 Hypertensive heart disease with heart failure; I50.9 Heart failure, unspecified; J45.909 Unspecified asthma, uncomplicated; E66.9 Obesity, unspecified; Z79.899 Other long term (current) drug therapy
CPT/HCPCS: 99284; A9270; J7512; J7620

== ENCOUNTER 2024-09-26 07:18 | Emergency (ER) | payer BC ==
[2024-09-26] MEDS: Albuterol/Ipratropium 3.0-0.5 MG/3 ML Neb Soln NEB ONE (08:09)
[2024-09-26 08:10] LABS: BASOPHILS ABSOLUTE AUTO 0.1 x10-3/uL (0.0-0.3); BASOPHILS PERCENT AUTO 1.1 % (0.3-3.8); EOSINOPHILS ABSOLUTE AUTO 0.2 x10-3/uL (0.0-0.6); HEMOGLOBIN 14.2 g/dL (12.9-17.7); LYMPHOCYTES PERCENT AUTO 20.9 % (15.8-45.3); MEAN CORPUSCULAR HEMOGLOBIN 29.4 pg (27.0-33.3); MEAN CORPUSCULAR HGB CONC 33.1 g/dL (28.7-35.3); MEAN CORPUSCULAR VOLUME 88.9 fL (80.8-98.7); MEAN PLATELET VOLUME 8.4 fL (6.7-11.0); MONOCYTES ABSOLUTE AUTO 0.5 x10-3/uL (0.0-1.2); MONOCYTES PERCENT AUTO 11.1 % (5.5-15.2); NEUTROPHILS ABSOLUTE AUTO 2.9 x10-3/uL (1.7-6.9); NEUTROPHILS PERCENT AUTO 62.9 % (40.3-71.8); PLATELET COUNT,PLT 149 x10(3)uL (117-477); RED BLOOD CELL COUNT 4.84 x10(6)uL (3.90-5.90); RED CELL DISTRIBUTION WIDTH 14.4 % (12.4-15.0); WHITE BLOOD CELL COUNT,WBC 4.6 x10-3/uL (3.2-10.1)
[2024-09-26 08:19] LABS: BLOOD UREA NITROGEN,BUN 16 mg/dL (7-18); BUN/CREATININE RATIO 13.3 (9-20); CALCIUM 9.1 mg/dL (8.6-10.2); CARBON DIOXIDE,CO2 32 mmol/L (21-32); CHLORIDE,CL 104 mmol/L (100-110); CREATININE 1.2 mg/dL (0.70-1.30); EST CRCL DRUG DOSING (CG) 68.08 mL/min; ESTIMATED GFR 72 mL/min (>60); GLUCOSE RANDOM 93 mg/dL (80-116); POTASSIUM,K 4.1 mmol/L (3.5-5.3); SODIUM,NA 141 mmol/L (135-145)
[2024-09-26 08:24] LABS: ALANINE AMINOTRANSFERASE,ALT 20 U/L (12-36); ALBUMIN 3.6 g/dL (3.5-5.2); ALKALINE PHOSPHATASE 87 IU/L (56-112); ASPARTATE AMNIOTRANSFERASE,AST 18 IU/L (5-25); BILIRUBIN TOTAL 0.9 mg/dL (0.1-1.3); MAGNESIUM 1.8 mg/dL (1.8-2.5); PROTEIN TOTAL,TP 7.2 g/dL (6.0-8.0)
[2024-09-26 08:34] LABS: C-REACTIVE PROTEIN 0.97 mg/dL (<0.50); TROPONIN I 11.1 pg/mL (4.0-60.3)
[2024-09-26] MEDS: predniSONE 20 MG Tab PO ONE (09:00)
[2024-09-26 09:55] VITALS: BP 123/76; PULSE 71
== END 2024-09-26 09:16 | disposition home or self-care (01) ==
LOC: FB.ED 07:18
DX: J45.901 Unspecified asthma with (acute) exacerbation (principal); I11.0 Hypertensive heart disease with heart failure; I50.9 Heart failure, unspecified; I48.91 Unspecified atrial fibrillation; Z91.148 Patient's other noncompliance with medication regimen for other reason; Z79.51 Long term (current) use of inhaled steroids; Z79.899 Other long term (current) drug therapy
CPT/HCPCS: 36415; 71046; 80053; 83735; 83880; 84484; 85025; 86140; 93005; 94640; 99285; J7512; J7620; 93010; 99284; A9270-GY

== ENCOUNTER 2024-11-07 06:30 | Emergency (ER) | payer BC ==
[2024-11-07 06:53] VITALS: PULSE 94
[2024-11-07] MEDS: Ondansetron 4 MG Tab.DIS PO ONE (07:31)
[2024-11-07 07:40] LABS: BASOPHILS ABSOLUTE AUTO 0.1 x10-3/uL (0.0-0.3); BASOPHILS PERCENT AUTO 1.2 % (0.3-3.8); EOSINOPHILS ABSOLUTE AUTO 0.2 x10-3/uL (0.0-0.6); EOSINOPHILS PERCENT AUTO 3.0 % (0.1-6.8); LYMPHOCYTES ABSOLUTE AUTO 1.0 x10-3/uL (0.5-4.5); LYMPHOCYTES PERCENT AUTO 19.3 % (15.8-45.3); MEAN PLATELET VOLUME 8.5 fL (6.7-11.0); MONOCYTES ABSOLUTE AUTO 0.5 x10-3/uL (0.0-1.2); MONOCYTES PERCENT AUTO 9.7 % (5.5-15.2); NEUTROPHILS ABSOLUTE AUTO 3.5 x10-3/uL (1.7-6.9); NEUTROPHILS PERCENT AUTO 66.8 % (40.3-71.8); PLATELET COUNT,PLT 189 x10(3)uL (117-477); RED BLOOD CELL COUNT 4.92 x10(6)uL (3.90-5.90); RED CELL DISTRIBUTION WIDTH 14.8 % (12.4-15.0); WHITE BLOOD CELL COUNT,WBC 5.2 x10-3/uL (3.2-10.1)
[2024-11-07 07:46] VITALS: BP 113/69
[2024-11-07 07:46] LABS: BLOOD UREA NITROGEN,BUN 18 mg/dL (7-18); CARBON DIOXIDE,CO2 32 mmol/L (21-32); CHLORIDE,CL 103 mmol/L (100-110); CREATININE 1.1 mg/dL (0.70-1.30); EST CRCL DRUG DOSING (CG) 76.77 mL/min; ESTIMATED GFR 80 mL/min (>60); GLUCOSE RANDOM 100 mg/dL (80-116); POTASSIUM,K 3.8 mmol/L (3.5-5.3); SODIUM,NA 139 mmol/L (135-145)
[2024-11-07 07:52] LABS: A/G RATIO 0.9; ALANINE AMINOTRANSFERASE,ALT 16 U/L (12-36); ASPARTATE AMNIOTRANSFERASE,AST 17 IU/L (5-25); BILIRUBIN TOTAL 0.7 mg/dL (0.1-1.3); PROTEIN TOTAL,TP 6.9 g/dL (6.0-8.0)
== END 2024-11-07 08:59 | disposition home or self-care (01) ==
LOC: SUPCPDRO 06:30 → FB.ED 06:30
DX: R11.0 Nausea (principal); I11.0 Hypertensive heart disease with heart failure; I50.9 Heart failure, unspecified; J45.909 Unspecified asthma, uncomplicated; I48.20 Chronic atrial fibrillation, unspecified; Z79.899 Other long term (current) drug therapy
CPT/HCPCS: 36415; 80053; 83735; 83880; 84484; 85025; 93005; 99284; Q0162